=== PATIENT | female | born 1940 | race Caucasian/White ===

== ENCOUNTER → 2016-09-16 | Outpatient (CLI) | payer OTHER, BC ==
[~2016-09-16] MED LIST: ATV1HP PO; CLB/200 PO; CRG3125 PO; DICL1GEL28 TD; ESCI1TAB9 PO; KETO0.5S33 OPB; LPT40 PO; LSN5 PO; METF500T PO; MULT-513 PO; NRN100 PO; PRLSR20 PO; RXC5 PO; SLWMEC PO; TRIA37.5 PO
== END | disposition home or self-care (01) ==
LOC: C.LABSPEC 11:45
PROVIDERS: ATTEND Family Medicine
DX: R50.9 Fever, unspecified (principal)

== ENCOUNTER → 2016-10-15 | Outpatient (CLI) | payer OTHER, BC ==
[2016-10-15 12:37] LABS: ALT/SGPT 22 U/L (12-78); AST/SGOT 12 U/L (15-37); BLOOD UREA NITROGEN 23 mg/dl (7-18); BUN/CREATININE RATIO 21.2 (10-20); CARBON DIOXIDE 33 mmol/L (21-32); CHLORIDE 101 mmol/L (98-107); GLUCOSE 99 mg/dl (70-99); POTASSIUM 4.7 mmol/L (3.5-5.1); SODIUM 136 mmol/L (136-145)
[2016-10-15 12:48] LABS: ALKALINE PHOSPHATASE 52 U/L (45-117); CHOLESTEROL 221 mg/dl (0-200); CHOLESTEROL/HDL RATIO 5.7; HDL CHOLESTEROL 39 mg/dl; LDL CHOLESTEROL CALCULATED 150 mg/dl; TRIGLYCERIDES 159 mg/dl (0-150); VERY LOW DENSITY LIPOPROT CALC 32 mg/dl
[2016-10-15 12:54] LABS: ESTIMATED AVERAGE GLUCOSE 123 mg/dl; HA1C FLAG Normal (Normal)
--- NOTE | 2016-10-19 12:36 | CODING QUERY MEDICAL NECESSITY ---
SUPPORTING DIAGNOSIS NEEDED Dr. Alatorre, A supporting diagnosis is required for the test/procedure performed on this patient in order for us to be reimbursed by the patient's insurance. Please provide a supporting diagnosis for the following test/procedure listed below next to the test name along with your signature. *If there is no additional diagnosis for this patient that would support the following test/procedure please document that below next to the test/procedure. Test(s)/Procedure(s) that require a supporting diagnosis: * ([id number]) VITAMIN D ASSAY DIAGNOSIS: DATE OF SERVICE: 10/15/16 Provider Signature: Date: Thank you Kel Castano [facility] Information Management Once completed, please kindly fax back to [phone] For questions please call [phone]
== END | disposition home or self-care (01) ==
LOC: C.LABPVFM 09:28
PROVIDERS: ATTEND Family Medicine
DX: I10 Essential (primary) hypertension (principal); E11.9 Type 2 diabetes mellitus without complications; E78.5 Hyperlipidemia, unspecified; G47.9 Sleep disorder, unspecified; F41.9 Anxiety disorder, unspecified; Z13.21 Encounter for screening for nutritional disorder; E55.9 Vitamin D deficiency, unspecified

== ENCOUNTER → 2017-02-24 | Outpatient (CLI) | payer OTHER, BC ==
--- NOTE | 2017-02-24 10:45 | DIAGNOSTIC IMAGING REPORT ---
CHEST 2 VIEWS ROUTINE CLINICAL HISTORY: 76 years-old Female presenting with PRUITUS. TECHNIQUE: PA and lateral views of the chest were obtained. COMPARISON: 02/19/2014. FINDINGS: Atherosclerosis of the aortic arch. Cardiac silhouette normal. Lungs and pleural spaces clear. Right shoulder arthroplasty. Acute kyphotic deformity in the lower thoracic spine, although compression deformities are not well demonstrated. This has significantly increased since 2013. Upper abdomen demonstrates posterior lumbar fusion hardware. IMPRESSION: 1. No acute cardiopulmonary disease. 2. Significant increase in kyphotic deformity since 2013 secondary to presumed compression deformities in the lower thoracic spine, which are poorly visualized. Electronically signed by: Derrick Lindo M.D. 02/24/2017 10:44 AM Dictated Date/Time: 02/24/2017 10:42 AM
[2017-02-24 12:12] LABS: BASO % 0.5 %; BASO ABS # 0.03 K/uL (0-0.2); COMPLETE YES; EOS % 3.6 %; HEMATOCRIT 38.6 % (37-47); IG% 0.5 %; LYMPH % 24.9 %; LYMPH ABS # 1.66 K/uL (1.2-3.4); MEAN CELL VOLUME 86.4 fL (80-100); MEAN CORPUSCULAR HEMOGLOBIN 27.7 pg (25-34); MEAN CORPUSCULAR HGB CONC 32.1 g/dl (32-36); MEAN PLATELET VOLUME 9.4 fL (7.4-10.4); MONO % 9.8 %; NEUT % 60.7 %; PLATELET COUNT 269 K/uL (130-400); RED BLOOD COUNT 4.47 M/uL (4.2-5.4); WHITE BLOOD COUNT 6.66 K/uL (4.8-10.8)
== END | disposition home or self-care (01) ==
LOC: C.LABPVFM 10:20
PROVIDERS: ATTEND Dermatology
DX: L29.9 Pruritus, unspecified (principal)

== ENCOUNTER → 2017-04-14 | Outpatient (CLI) | payer OTHER, BC ==
[2017-04-14 12:39] LABS: ALT/SGPT 20 U/L (12-78); BLOOD UREA NITROGEN 19 mg/dl (7-18); BUN/CREATININE RATIO 16.8 (10-20); CALCIUM 9.5 mg/dl (8.5-10.1); CARBON DIOXIDE 30 mmol/L (21-32); CHLORIDE 97 mmol/L (98-107); CHOLESTEROL 189 mg/dl (0-200); GLUCOSE 99 mg/dl (70-99); POTASSIUM 4.5 mmol/L (3.5-5.1); SODIUM 131 mmol/L (136-145); TRIGLYCERIDES 161 mg/dl (0-150); VERY LOW DENSITY LIPOPROT CALC 32 mg/dl
[2017-04-14 12:42] LABS: ALKALINE PHOSPHATASE 57 U/L (45-117); AST/SGOT 17 U/L (15-37); CHOLESTEROL/HDL RATIO 5.4; HDL CHOLESTEROL 35 mg/dl; LDL CHOLESTEROL CALCULATED 122 mg/dl
== END | disposition home or self-care (01) ==
LOC: C.LABPVFM 09:04
PROVIDERS: ATTEND Family Medicine
DX: F41.9 Anxiety disorder, unspecified (principal); E78.5 Hyperlipidemia, unspecified; R73.01 Impaired fasting glucose; I10 Essential (primary) hypertension; G62.9 Polyneuropathy, unspecified

== ENCOUNTER → 2017-10-10 | Outpatient (CLI) | payer OTHER, BC ==
[2017-10-10 12:50] LABS: HEMOGLOBIN A1C 6.3 % (4.5-5.6)
[2017-10-10 13:03] LABS: ALBUMIN 3.7 gm/dl (3.4-5.0); ALT/SGPT 24 U/L (12-78); AST/SGOT 16 U/L (15-37); BLOOD UREA NITROGEN 19 mg/dl (7-18); CALCIUM 9.1 mg/dl (8.5-10.1); CARBON DIOXIDE 30 mmol/L (21-32); CHOLESTEROL 197 mg/dl (0-200); GLUCOSE 102 mg/dl (70-99); POTASSIUM 4.5 mmol/L (3.5-5.1); SODIUM 134 mmol/L (136-145)
[2017-10-10 13:06] LABS: ALKALINE PHOSPHATASE 59 U/L (45-117); LDL CHOLESTEROL CALCULATED 130 mg/dl; TOTAL PROTEIN 7.8 gm/dl (6.4-8.2)
== END | disposition home or self-care (01) ==
LOC: C.LABPVFM 09:48
PROVIDERS: ATTEND Family Medicine
DX: K21.0 Gastro-esophageal reflux disease with esophagitis (principal); I10 Essential (primary) hypertension; E78.5 Hyperlipidemia, unspecified; M19.90 Unspecified osteoarthritis, unspecified site; F41.9 Anxiety disorder, unspecified; R73.01 Impaired fasting glucose; G47.00 Insomnia, unspecified

== ENCOUNTER 2023-05-07 13:36 | Inpatient (IN) ==
--- NOTE | 2023-05-07 14:12 | Emergency Department Note ---
Impression & Plan Fall, Acute hip pain, Acute ankle pain ED Provider Note NAME: KENYA SALMERON AGE: 82 SEX: F : 1940 ARRIVES VIA: Walk-In INFORMANT: Patient ED PROVIDER(S): Terrence Rodriguez DO CHIEF COMPLAINT: fall HPI: Patient is an 82-year-old female with a past medical history of cognitive decline/dementia, diabetes and hypertension who presents the ER following a fall. They note that she was found in front of the house down the ground. She notes that she went outside to see the salvador. Her family is present at bedside and given the history that she was unable to get up and consequently they brought her in. She is complaining of right hip pain. No headache or neck pain. No chest pain. No other exacerbating or remitting factors. History is obtained from family present at bedside as the patient has dementia and is unable to offer any history. ADDITIONAL HISTORY OBTAINED: Per HPI Chronic Medical/Social Conditions Affecting Care: Per HPI PAST MEDICAL HISTORY:See Below PAST SURGICAL HISTORY:See Below FAMILY HISTORY:See Below SOCIAL HISTORY:See Below HOME MEDICATIONS:See Below ALLERGIES:See Below VITALS:See Below PHYSICAL EXAMINATION: GENERAL: alert, well appearing, well nourished, no distress, non-toxic HEAD: normal cephalic, atraumatic EYE EXAM: normal conjunctiva, PERRL and EOM's grossly intact OROPHARYNX: no exudate, no erythema, lips, buccal mucosa, and tongue normal and mucous membranes are moist NECK: supple, no nuchal rigidity, no adenopathy, non-tender CHEST: stable to compression anteriorly and posteriorly LUNGS: clear to auscultation. Normal chest wall mechanics HEART: no murmurs, S1 normal and S2 normal ABDOMEN: abdomen soft, non-tender, normo-active bowel sounds, no masses, no rebound or guarding. PELVIS: stable to compression anteriorly and posteriorly BACK: Back is symmetrical on inspection and there is no deformity, no midline tenderness, no CVA tenderness. UPPER EXTREMITIES: full active and passive range of motion of all joints without tenderness to palpation LOWER EXTREMITIES: Flexion-extension of bilateral hip knee ankle is intact. Minimal tenderness in the right ankle. Right leg is 2 inches shorter than left NEURO EXAM: Awake alert but confused at baseline cranial nerves II-XII grossly intact, normal speech, no gross weakness of arms, no gross weakness of legs. GCS: 14. MEDICAL DECISION MAKING: Patient is an 82-year-old female who presents ER for above-stated complaint. IV was established blood work was obtained. Labs show mild leukocytosis of 12,000. No significant anemia. BMP along with LFTs bilirubin and lipase is unremarkable. UA was contaminated and not clearly infected but she was given IV Cipro. She was given Cipro as she had allergies to penicillins and cephalosporins. She is updated bedside. Discussed with family who had some concerns in regards to her safety at home and consequently she was admitted to the hospital for further work-up management and treatment. External Records Reviewed: Patient follows up with PCP for for depression Consults/Care Managements Discussions: Per [facility] Triage Nursing notes reviewed. Limited review of prior medical records performed Vital Signs: reviewed and remarkable for no significant abnormalities Differential diagnosis: Differential diagnoses include major intracranial, cervical, spinal, thoracic, abdominal, pelvic and neurologic injury. Fracture, contusion, sprain, strain, laceration, abrasions included as well. ER treatment provided: See below Diagnostics interpreted by me include EKG and cardiac monitoring as listed below: -Cardiac Monitoring: An order was placed for continuous cardiac monitoring. The monitor shows a rate of 70 with sinus rhythm. -ECG: Sinus rhythm rate 69 Normal axis No PVCs QTc 420 -Laboratory studies:Interpreted by me as stated above in MDM and shown below. Imaging studies: Xrays: As interpreted by me: X-ray of the hip and pelvis showed no obvious fracture per my read by degenerative findings within the right hip question AVM of the CTs show: CT head was negative Procedures:none Critical Care: None Past Med/Surg History Medical History Memory loss Osteopenia Surgical History History of hysterectomy History of tonsillectomy History of vaginal surgery History of ventral hernia repair Family History Mother Malignant neoplasm of brain Pancreatic cancer Father Malignant neoplasm of brain Alzheimer disease Pancreatic cancer Myocardial infarction Sister Malignant neoplasm of brain Denies family history of Ovarian cancer Prostate cancer Breast cancer Colorectal cancer Social History Smoking Status: Former smoker Hx Alcohol Use: No Hx Substance Use: No Preferred Language: Dutch marital status: Current Living Situation: Spouse current occupational status: retired Feels Safe at Home: Yes caffeine: Yes Dental Care, Regularly: No Physical Activity Frequency: Does not Exercise Seatbelt Use: always Sunscreen Use: Yes Allergies Allergies Allergy/AdvReac Type Severity Reaction Status Date / Time Cephalosporins Allergy Mild Verified 02/11/23 10:14 Penicillins Allergy Mild ITCHING;JOSE Verified 02/11/23 10:14 MA tramadol Allergy Unknown Verified 02/11/23 10:14 prednisone Allergy Verified 02/11/23 10:14 morphine AdvReac Severe nausea and Verified 02/11/23 10:14 vomiting Home Meds Home Medications Medication Instructions Recorded Confirmed coenzyme Q10 100 mg capsule 100 mg PO DAILY 05/02/20 05/07/23 acetaminophen 325 mg tablet 325 mg PO AMHS 08/22/20 05/07/23 aspirin 81 mg tablet,delayed 81 mg PO DAILY 12/26/20 05/07/23 release Previous Rx's Medication Instructions Recorded escitalopram oxalate 10 mg tablet 10 mg PO DAILY #90 tabs 10/05/22 (Lexapro) lisinopril 10 mg tablet 10 mg PO DAILY #90 tabs 10/05/22 carvedilol 3.125 mg tablet 6.25 mg PO BID #360 tabs 11/03/22 celecoxib 200 mg capsule 200 mg PO DAILY #90 caps 12/07/22 ezetimibe 10 mg tablet (Zetia) 10 mg PO DAILY #90 tabs 12/07/22 atorvastatin 80 mg tablet 80 mg PO DAILY #90 tabs 12/22/22 gabapentin 300 mg capsule 300 mg PO DAILY #90 caps 12/22/22 omeprazole 20 mg capsule,delayed 20 mg PO DAILY #90 caps 12/22/22 release sodium chloride 1 gram tablet 1,000 mg PO BID #180 tabs 03/07/23 furosemide 20 mg tablet (Lasix) 10 mg PO BID #45 tabs 05/05/23 Results & Data (ED) Vital Signs Vital Signs - 24 hr 05/07/23 13:37 05/07/23 14:32 05/07/23 14:32 Temperature 37.0 C Temperature Source Oral Pulse Rate 69 Pulse Rate [Apical] 73 Respiratory Rate 16 18 Respiratory Effort / Characteristics Non-Labored Respiratory Depth Normal Blood Pressure 143/62 H Blood Pressure [Right Arm] 210/125 H Blood Pressure Mean 89 Blood Pressure Mean [Right Arm] 153 Pulse Oximetry 95 96 96 Oxygen Delivery Method Room Air Room Air Sepsis Recent Fever Within 48 Hours No Sepsis New/Unexplained Change in Mental Status N/A Sepsis Action Taken by Nursing No Action Required 05/07/23 15:00 05/07/23 15:43 Temperature Temperature Source Pulse Rate 69 Pulse Rate [Apical] 75 Respiratory Rate 16 Respiratory Effort / Characteristics Respiratory Depth Blood Pressure Blood Pressure [Right Arm] 184/69 H Blood Pressure Mean Blood Pressure Mean [Right Arm] 107 Pulse Oximetry 97 Oxygen Delivery Method Sepsis Recent Fever Within 48 Hours Sepsis New/Unexplained Change in Mental Status Sepsis Action Taken by Nursing Laboratory Data 05/07/23 14:15 05/07/23 14:15 Lab Results 05/07/23 05/07/23 05/07/23 Range/Units 14:15 14:15 14:28 WBC 12.19 H (4.8-10.8) K/ul RBC 4.47 (4.20-5.40) M/uL Hgb 12.6 (12.0-16.0) g/dl Hct 38.4 (37.0-47.0) % MCV 85.9 (80.0-100.0) fL MCH 28.2 (25.0-34.0) pg MCHC 32.8 (32.0-36.0) g/dL RDW Std Deviation 42.2 (36.4-46.3) fL RDW Coeff of Jan 13.5 (11.5-14.5) % Plt Count 258 (130-400) K/uL MPV 9.1 L (9.4-12.4) fL Immature Gran % (Auto) 0.6 % Neut % (Auto) 81.1 % Lymph % (Auto) 9.8 % [place] % (Auto) 6.8 % Eos % (Auto) 1.1 % Baso % (Auto) 0.6 % Neut # (Auto) 9.89 H (1.40-6.50) K/uL Lymph # (Auto) 1.19 L (1.20-3.40) K/uL [place] # (Auto) 0.83 H (0.11-0.59) K/uL Eos # (Auto) 0.14 (0.00-0.50) K/uL Baso # (Auto) 0.07 (0.00-0.20) K/uL Immature Gran # (Auto) 0.07 (0.01-0.20) K/uL Sodium 132 L (136-145) mmol/L Potassium 3.9 (3.5-5.1) mmol/L Chloride 101 (98-107) mmol/L Carbon Dioxide 27 (21-32) mmol/L Anion Gap 4 (3-11) BUN 15 (6-23) mg/dl Creatinine 0.92 (0.6-1.2) mg/dl Est Cr Clr Drug Dosing Not Reportable Est GFR ( Amer) 66.7 ml/min Est GFR (Non-Af Amer) 57.6 ml/min BUN/Creatinine Ratio 16.3 (10-20) Glucose 115 H (70-99(Fasting)) mg/dl Calcium 9.1 (8.6-10.3) mg/dl Total Bilirubin 0.8 (0.2-1.0) mg/dl AST 14 (13-39) U/L ALT 11 (7-52) U/L Alkaline Phosphatase 56 (34-104) U/L Total Creatine Kinase 37 (26-192) U/L Troponin I High Sens 11.3 (0-14) pg/ml Total Protein 6.8 (6.0-8.3) gm/dl Albumin 3.9 (3.4-5.0) gm/dl Globulin 2.9 (2.5-4.0) gm/dl Albumin/Globulin Ratio 1.3 (0.9-2) Lipase 37 (11-82) U/L Urine Color Yellow Urine Appearance Cloudy A (Clear) Urine pH 6.0 (4.5-7.5) Ur Specific [place] 1.018 (1.000-1.030) Urine Protein 1+ H (Negative) Urine Glucose (UA) Negative (Negative) Urine Ketones Negative (Negative) Urine Blood Negative (Negative) Urine Nitrite Negative (Negative) Urine Bilirubin Negative (Negative) Urine Urobilinogen Negative (Negative) Ur Leukocyte Esterase Trace H (Negative) Urine WBC (Auto) 5-10 H (0-5) /hpf Urine RBC (Auto) 0-4 (0-4) /hpf U Hyaline Cast (Auto) 1-5 (0-5) /lpf U Epithel Cells (Auto) 20-30 H (0-5) /lpf Urine Bacteria (Auto) 2+ H (Negative) Administered Medications Ciprofloxacin (Cipro / D5w) 400 mg in 200 mls @ 100 mls/hr IV NOW STA; Protocol Stop: 05/07/23 18:13 Last Admin: 05/07/23 17:09 Dose: 100 mls/hr Documented By: KT Discontinued Medications Acetaminophen (Acetaminophen 325 Mg Tab) 650 mg PO NOW STA Stop: 05/07/23 16:11 Last Admin: 05/07/23 17:09 Dose: 650 mg Documented By: KT Imaging Data Radiologist's Impression: Ankle X-Ray 05/07/23 14:05 RIGHT ANKLE 3 VIEWS CLINICAL HISTORY: Fall with right ankle injury. FINDINGS: 3 views of the right ankle are obtained. No prior studies are available for comparison at the time of dictation. The skeletal structures are heterogeneously osteopenic. No acute fracture is clearly identified. An indeterminate band of sclerosis is seen in the distal tibia and may be related to prior trauma. There is chronic appearing deformity at the base of the calcaneus. Dorsal and plantar heel spurs are observed. The ankle mortise is intact. Bony overgrowth is seen around the ankle. A high arch is observed. Soft tissue edema is present throughout the visualized right lower extremity. There is advanced atherosclerotic calcification of the regional arteries. IMPRESSION: 1. Soft tissue swelling with no acute fracture clearly identified. Inter pretation is difficult due to the degree of osteopenia and degenerative change. If there is clinical concern for occult fracture consider short-term radiographic follow-up. 2. A band of sclerosis in the distal tibia is indeterminant and may represent the sequela of previous trauma. 3. High arch and large heel spurs. Electronically signed by: Andrea Rush M.D. 05/07/2023 3:[address] 05/07/23 14:05 CT SCAN OF THE BRAIN WITHOUT IV CONTRAST CLINICAL HISTORY: Fall. COMPARISON STUDY: CT of the brain dated 11/13/2020 TECHNIQUE: Unenhanced axial CT scan of the brain is performed from the vertex to the skull base. A dose lowering technique was utilized adhering to the principles of ALARA. CT DOSE: 625.8 mGy.cm FINDINGS: Brain parenchyma: There is age-related involutional change noting [id number] subcortical and periventricular microangiopathic disease. There is no hemorrhage, mass effect, or evidence of acute territorial ischemia by CT criteria. Soto-white matter differentiation is preserved. No extra-axial fluid collection is seen. Ventricles, sulci, cisterns: Prominent secondary to involutional change. Intracranial vasculature: There is atherosclerotic calcification of the cavernous carotid and vertebral artery. Calvarium: The skeletal structures are osteopenic. No depressed calvarial fracture is identified. Sinuses and mastoids: The visualized paranasal sinuses are clear. The mastoid air cells are well pneumatized. Orbits: The bony orbits are grossly intact. There are bilateral ocular lens implants. IMPRESSION: There is no hemorrhage, mass effect, or evidence of acute te rritorial ischemia by CT criteria. ACT 112: Negative or not required by law. Electronically signed by: Andrea Rush M.D. 05/07/2023 2:49 PM Hip/Pelvis X-Ray 05/07/23 14:05 SINGLE VIEW PELVIS; 2 VIEWS RIGHT HIP CLINICAL HISTORY: Fall. Right hip pain. FINDINGS: An AP view of the pelvis with AP and frog leg views of the right hip are obtained. Correlation is made with radiographs of the lumbar spine dated 04/25/2020. The skeletal structures are osteopenic. No acute fracture is seen involving the hips or bony pelvis. 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 There is advanced degenerative change of the right hip with marked deformity and flattening of the right femoral head. This represents a significant change from 04/25/2020. The right femur is superiorly subluxed. Moderate to advanced arthritic change is noted in the left hip. Degenerative sclerosis is seen in the sacroiliac joints and pubic symphysis. Advanced spondylosis and postsurgical change is partially visualized in the lumbar spine. There is advanced atherosclerotic calcification of the femoral arteries. Numerous calcified granulomas project over the gluteal tissues. IMPRESSION: 1. No acute fracture is identified. 2. There is advanced degenerative change/deformity of the right hip as above with flattening of the right femoral head. This has significantly progressed as compared 2019. Outpatient orthopedic follow-up is recommended. 3. Additional findings as above. Electronically signed by: Andrea Rush M.D. 05/07/2023 3:26 PM Discharge Plan Visit Data Chief Complaint: Fall Stated Complaint: FALL RIGHT LEG AND HIP PAIN ED Provider: Terrence Rodriguez Discharge Problem: Fall, Acute hip pain, Acute ankle pain Patient Disposition: Admitted As Inpatient Discharge Instructions Interventions: ED Discharge Assessment Last Done: 05/07/23 17:40 Forms Stand Alone Forms: My [facility] Prescriptions Prescriptions: No Action coenzyme Q10 100 mg capsule 100 mg PO DAILY escitalopram oxalate [Lexapro] 10 mg tablet 10 mg PO DAILY Qty: 90 3RF lisinopril 10 mg tablet 10 mg PO DAILY Qty: 90 3RF carvedilol 3.125 mg tablet 6.25 mg PO BID Qty: 360 3RF Rx Instructions: must administer with a meal/food ezetimibe [Zetia] 10 mg tablet 10 mg PO DAILY Qty: 90 3RF celecoxib 200 mg capsule 200 mg PO DAILY Qty: 90 3RF omeprazole 20 mg capsule,delayed release(DR/EC) 20 mg PO DAILY Qty: 90 3RF atorvastatin 80 mg tablet 80 mg PO DAILY Qty: 90 3RF gabapentin 300 mg capsule 300 mg PO DAILY Qty: 90 1RF sodium chloride 1 gram tablet 1,000 mg PO BID Qty: 180 2RF furosemide [Lasix] 20 mg tablet 10 mg PO BID Qty: 45 3RF acetaminophen 325 mg tablet 325 mg PO AMHS aspirin 81 mg tablet,delayed release (DR/EC) 81 mg PO DAILY Referrals Referrals: Lorene Murray MD [Primary Care Provider] -
[2023-05-07 14:36] LABS: Basophils # (auto) 0.07 K/uL (0.00-0.20); Basophils % (auto) 0.6 %; Eosinophils # (auto) 0.14 K/uL (0.00-0.50); Eosinophils % (auto) 1.1 %; Hematocrit (blood only) 38.4 % (37.0-47.0); Hemoglobin 12.6 g/dl (12.0-16.0); Immature Granulocytes # (auto) 0.07 K/uL (0.01-0.20); Immature Granulocytes % (auto) 0.6 %; Lymphocytes # (auto) 1.19 K/uL (1.20-3.40); Lymphocytes % (auto) 9.8 %; Mean Corpuscular Hemoglobin 28.2 pg (25.0-34.0); Mean Corpuscular Hgb Conc 32.8 g/dL (32.0-36.0); Mean Corpuscular Volume 85.9 fL (80.0-100.0); Mean Platelet Volume 9.1 fL (9.4-12.4); Monocytes # (auto) 0.83 K/uL (0.11-0.59); Monocytes % (auto) 6.8 %; Neutrophils # (auto) 9.89 K/uL (1.40-6.50); Neutrophils % (auto) 81.1 %; Platelet Count 258 K/uL (130-400); RDW Coefficient of Variation 13.5 % (11.5-14.5); RDW Standard Deviation 42.2 fL (36.4-46.3); Red Blood Count 4.47 M/uL (4.20-5.40); White Blood Count 12.19 K/ul (4.8-10.8)
[2023-05-07 14:47] LABS: Appearance Urine Cloudy (Clear); Bacteria Urine Automated 2+ (Negative); Bilirubin Urine Negative (Negative); Blood Urine Negative (Negative); Color Urine Yellow; Epithelial Cell Urine Auto 20-30 /lpf (0-5); Glucose Urine UA Negative (Negative); Ketones Urine Negative (Negative); Leukocyte Esterase Urine Trace (Negative); Nitrite Urine Negative (Negative); Protein Urine 1+ (Negative); RBC Urine Automated 0-4 /hpf (0-4); Specific Gravity Urine 1.018 (1.000-1.030); Urobilinogen Urine Negative (Negative)
--- NOTE | 2023-05-07 14:50 | CT Scan Report ---
CT SCAN OF THE BRAIN WITHOUT IV CONTRAST CLINICAL HISTORY: Fall. COMPARISON STUDY: CT of the brain dated 11/13/2020 TECHNIQUE: Unenhanced axial CT scan of the brain is performed from the vertex to the skull base. A do se lowering technique was utilized adhering to the principles of ALARA. CT DOSE: 625.8 mGy.cm FINDINGS: Brain parenchyma: There is age-related involutional change noting [id number] subcortical and pe riventricular microangiopathic disease. There is no hemorrhage, mass effect, or evidence of acute ter ritorial ischemia by CT criteria. Soto-white matter differentiation is preserved. No extra-axial flui d collection is seen. Ventricles, sulci, cisterns: Prominent secondary to involutional change. Intracranial vasculature: There is atherosclerotic calcification of the cavernous carotid and vertebr al artery. Calvarium: The skeletal structures are osteopenic. No depressed calvarial fracture is identified. Sinuses and mastoids: The visualized paranasal sinuses are clear. The mastoid air cells are well pneu matized. Orbits: The bony orbits are grossly intact. There are bilateral ocular lens implants. IMPRESSION: There is no hemorrhage, mass effect, or evidence of acute territorial ischemia by CT gerard alcantar. ACT 112: Negative or not required by law. Electronically signed by: Andrea Rush M.D. 05/07/2023 2:49 PM
[2023-05-07 14:57] LABS: Alanine Aminotransferase 11 U/L (7-52); Albumin Globulin Ratio 1.3 (0.9-2); Albumin Level 3.9 gm/dl (3.4-5.0); Alkaline Phosphatase 56 U/L (34-104); Anion Gap 4 (3-11); Aspartate Aminotransferase 14 U/L (13-39); BUN Creatinine Ratio 16.3 (10-20); Bilirubin,Total 0.8 mg/dl (0.2-1.0); Blood Urea Nitrogen 15 mg/dl (6-23); Calcium 9.1 mg/dl (8.6-10.3); Carbon Dioxide 27 mmol/L (21-32); Chloride 101 mmol/L (98-107); Creatine Kinase 37 U/L (26-192); Est GFR (African American) 66.7 ml/min; Est GFR (Non-African American) 57.6 ml/min; Globulin 2.9 gm/dl (2.5-4.0); Glucose 115 mg/dl (70-99(Fasting)); Lipase 37 U/L (11-82); Potassium 3.9 mmol/L (3.5-5.1); Sodium 132 mmol/L (136-145); Total Protein 6.8 gm/dl (6.0-8.3)
[2023-05-07 15:04] LABS: Troponin I High Sensitivity 11.3 pg/ml (0-14)
--- NOTE | 2023-05-07 15:14 | XRay Report ---
RIGHT ANKLE 3 VIEWS CLINICAL HISTORY: Fall with right ankle injury. FINDINGS: 3 views of the right ankle are obtained. No prior studies are available for comparison at t he time of dictation. The skeletal structures are heterogeneously osteopenic. No acute fracture is cl early identified. An indeterminate band of sclerosis is seen in the distal tibia and may be related t o prior trauma. There is chronic appearing deformity at the base of the calcaneus. Dorsal and plantar heel spurs are observed. The ankle mortise is intact. Bony overgrowth is seen around the ankle. A hi gh arch is observed. Soft tissue edema is present throughout the visualized right lower extremity. Th ere is advanced atherosclerotic calcification of the regional arteries. IMPRESSION: 1. Soft tissue swelling with no acute fracture clearly identified. Interpretation is difficult due to the degree of osteopenia and degenerative change. If there is clinical concern for occult fracture c onsider short-term radiographic follow-up. 2. A band of sclerosis in the distal tibia is indeterminant and may represent the sequela of previous trauma. 3. High arch and large heel spurs. Electronically signed by: Andrea Rush M.D. 05/07/2023 3:12 PM
--- NOTE | 2023-05-07 15:29 | XRay Report ---
SINGLE VIEW PELVIS; 2 VIEWS RIGHT HIP CLINICAL HISTORY: Fall. Right hip pain. FINDINGS: An AP view of the pelvis with AP and frog leg views of the right hip are obtained. Correlat ion is made with radiographs of the lumbar spine dated 04/25/2020. The skeletal structures are osteope pablo. No acute fracture is seen involving the hips or bony pelvis. 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 There is advanced degenerative change of the right hip with marked deformity and flattening o f the right femoral head. This represents a significant change from 04/25/2020. The right femur is sup eriorly subluxed. Moderate to advanced arthritic change is noted in the left hip. Degenerative sclero sis is seen in the sacroiliac joints and pubic symphysis. Advanced spondylosis and postsurgical jameson e is partially visualized in the lumbar spine. There is advanced atherosclerotic calcification of the femoral arteries. Numerous calcified granulomas project over the gluteal tissues. IMPRESSION: 1. No acute fracture is identified. 2. There is advanced degenerative change/deformity of the right hip as above with flattening of the r ight femoral head. This has significantly progressed as compared 2019. Outpatient orthopedic follow-u p is recommended. 3. Additional findings as above. Electronically signed by: Andrea Rush M.D. 05/07/2023 3:26 PM
[2023-05-07] MEDS ORDERED: ACETAMINOPHEN 325 MG TAB PO STA (16:10)
[2023-05-07] MEDS ORDERED: CIPROFLOXACIN / D5W 400 MG/200 ML BAG IV STA (16:14)
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
[2023-05-07] MEDS ORDERED: GLUCAGON FOR INJ 1 MG VIAL SQ PRN (16:59)
[2023-05-07] MEDS ORDERED: DEXTROSE 50% 50 ML SYRINGE IV PRN (16:59)
[2023-05-07] MEDS ORDERED: GLUCOSE 40% GEL 15 GM TUBE PO PRN (16:59)
[2023-05-07] MEDS ORDERED: GLUCOSE 10 TAB/TUBE PO PRN (16:59)
[2023-05-07] MEDS ORDERED: CARBOHYDRATES FOR HYPOGLYCEMIA PO PRN (16:59)
[2023-05-07] MEDS ORDERED: LACTATED RINGER'S 500 ML IV ONE (17:17)
[2023-05-07] MEDS ORDERED: lisinopril 10 MG TAB PO ONE (18:23)
[2023-05-07] MEDS ORDERED: carvediloL 6.25 MG TAB PO STA (18:23)
[2023-05-07] MEDS ORDERED: ACETAMINOPHEN 325 MG TAB PO PRN (20:00)
[2023-05-07] MEDS: ACETAMINOPHEN 325 MG TAB PO SCH (20:28)
[2023-05-07] MEDS: SODIUM CHLORIDE 1 GM TABLET PO SCH (20:29)
[2023-05-07] MEDS ORDERED: carvediloL 6.25 MG TAB PO SCH (21:00)
[2023-05-07] MEDS ORDERED: INFLUENZA VACCINE HIGH-DOSE (HD-IIV4) PF 65+ 0.7mL SYR IM ONE (21:00)
[2023-05-07] MEDS: INSULIN ASPART PER UNIT CHARGE SC SCH (22:00)
[2023-05-07] MEDS ORDERED: Nursing to Pharmacy Communication SCH (23:30)
[2023-05-08] MEDS ORDERED: INFLUENZA VACCINE HIGH-DOSE (HD-IIV4) PF 65+ 0.7mL SYR IM ONE (06:00)
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
[2023-05-08 07:38] LABS: Basophils # (auto) 0.08 K/uL (0.00-0.20); Eosinophils # (auto) 0.46 K/uL (0.00-0.50); Eosinophils % (auto) 5.7 %; Hematocrit (blood only) 36.1 % (37.0-47.0); Hemoglobin 12.2 g/dl (12.0-16.0); Immature Granulocytes # (auto) 0.04 K/uL (0.01-0.20); Immature Granulocytes % (auto) 0.5 %; Lymphocytes # (auto) 1.13 K/uL (1.20-3.40); Mean Corpuscular Hemoglobin 28.2 pg (25.0-34.0); Mean Corpuscular Hgb Conc 33.8 g/dL (32.0-36.0); Mean Corpuscular Volume 83.6 fL (80.0-100.0); Mean Platelet Volume 9.3 fL (9.4-12.4); Monocytes # (auto) 0.74 K/uL (0.11-0.59); Monocytes % (auto) 9.1 %; Neutrophils # (auto) 5.65 K/uL (1.40-6.50); Neutrophils % (auto) 69.7 %; Platelet Count 254 K/uL (130-400); RDW Coefficient of Variation 13.5 % (11.5-14.5); RDW Standard Deviation 41.9 fL (36.4-46.3); Red Blood Count 4.32 M/uL (4.20-5.40)
[2023-05-08 07:57] LABS: BUN Creatinine Ratio 17.9 (10-20); Calcium 8.7 mg/dl (8.6-10.3); Creatinine Clr Calc Pharmacy 43.2 ml/min; Est GFR (African American) 81.5 ml/min; Est GFR (Non-African American) 70.3 ml/min; Potassium 3.7 mmol/L (3.5-5.1)
[2023-05-08] MEDS: ACETAMINOPHEN 325 MG TAB PO SCH ×2 (07:58→20:23)
[2023-05-08] MEDS: INSULIN ASPART PER UNIT CHARGE SC SCH ×4 (07:58→20:08)
[2023-05-08] MEDS: ATORVASTATIN 40 MG TAB PO SCH (07:59)
[2023-05-08] MEDS: PANTOprazole 40 MG TAB PO SCH (07:59)
[2023-05-08] MEDS: ASPIRIN 81 MG ECTAB PO SCH (07:59)
[2023-05-08] MEDS: EZETIMIBE 10 MG TAB PO SCH (07:59)
[2023-05-08] MEDS: SODIUM CHLORIDE 1 GM TABLET PO SCH ×2 (07:59→20:23)
[2023-05-08] MEDS: GABAPENTIN 300 MG CAP PO SCH (07:59)
[2023-05-08] MEDS: carvediloL 6.25 MG TAB PO SCH ×2 (07:59→17:56)
[2023-05-08] MEDS: ESCITALOPRAM OXALATE 10 MG TAB PO SCH (07:59)
[2023-05-08] MEDS: lisinopril 10 MG TAB PO SCH (07:59)
--- NOTE | 2023-05-08 11:13 | Electrocardiogram Report ---
Test Reason : Blood Pressure : / mmHG Vent. Rate : 069 BPM Atrial Rate : 069 BPM P-R Int : 134 ms QRS Dur : 086 ms QT Int : 392 ms P-R-T Axes : 066 -12 064 degrees QTc Int : 420 ms Normal sinus rhythm Possible Left atrial enlargement T wave abnormality, consider anterior ischemia Abnormal ECG When compared with ECG of 19-FEB-2014 10:45, No significant change was found Confirmed by Peyman Avalos ([id number]) on 05/08/2023 11:13:00 AM Referred By: Confirmed By:Peyman Avalos
[2023-05-08] MEDS ORDERED: FUROSEMIDE 40 MG TAB PO ONE (11:15)
[2023-05-08] MEDS: FUROSEMIDE 20 MG TAB PO SCH (17:56)
--- NOTE | 2023-05-08 19:32 | XRay Report ---
RIGHT ANKLE 3 VIEWS CLINICAL HISTORY: Fall with right ankle injury. FINDINGS: 3 views of the right ankle are compared to study dated 05/07/2023. The skeletal structures a re heterogeneously osteopenic. No acute fracture is clearly identified. An indeterminate band of scle rosis is seen in the distal tibia and may be related to prior trauma. There is chronic appearing defo rmity at the base of the calcaneus. Dorsal and plantar heel spurs are observed. The ankle mortise is intact. Bony overgrowth is seen around the ankle. A high arch is observed. Soft tissue edema is prese nt throughout the visualized right lower extremity. There is advanced atherosclerotic calcification o f the regional arteries. IMPRESSION: 1. Soft tissue swelling with no acute fracture clearly identified. No significant change from yesterd ay. Note that interpretation is difficult due to the degree of osteopenia and degenerative change. If there is clinical concern for occult fracture consider short-term (1-2 weeks)radiographic follow-up. Alternatively, a CT scan could be obtained for further evaluation. 2. A band of sclerosis in the distal tibia is indeterminant and may represent healing fracture or the sequela of previous trauma. 3. High arch and large heel spurs. Electronically signed by: Andrea Rush M.D. 05/08/2023 7:30 PM
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
--- NOTE | 2023-05-09 08:00 | Cardiology Consultation ---
Date of Consultation May 09, 2023 History of Present Illness Reason for Consultation: Fall Requesting Physician: Kanika donisist Attending Physician: Terrence Bush DO History of Present Illness 82-year-old female who initially presented to [facility] emergency department after an unwitnessed fall at home. Thought to be mechanical in nature. Initially patient was hypertensive on presentation and Lasix was held due to concerns for hypovolemia. Admission sodium level was mildly low at 132. Renal function stable. Repeat s odium level pending this a.m. Urine culture was abnormal and patient was treated with antibiotics. EKG without acute ST segment changes. 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 Dejesus Past medical history: 1. 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 Past ventricular ectopy. 3. Hypertension. 4. Hyperlipidemia/dyslipidemia 5. Traumatic subdural hemorrhage versus chronic calcification April 27, 2020 after fall with mild decreased cognition noted chronically 6. Chronic hyponatremia Allergies Allergy/AdvReac Type Severity Reaction Status Date / Time Cephalosporins Allergy Mild Verified 02/11/23 10:14 Penicillins Allergy Mild ITCHING;JOSE Verified 02/11/23 10:14 MA tramadol Allergy Unknown Verified 02/11/23 10:14 prednisone Allergy Verified 02/11/23 10:14 morphine AdvReac Severe nausea and Verified 02/11/23 10:14 vomiting Home Medications Medication Instructions Recorded Confirmed Type coenzyme Q10 100 mg capsule 100 mg PO DAILY 05/02/20 05/07/23 History acetaminophen 325 mg tablet 325 mg PO AMHS 08/22/20 05/07/23 History aspirin 81 mg tablet,delayed 81 mg PO DAILY 12/26/20 05/07/23 History release escitalopram oxalate 10 mg tablet 10 mg PO DAILY #90 tabs 10/05/22 05/07/23 Rx (Lexapro) lisinopril 10 mg tablet 10 mg PO DAILY #90 tabs 10/05/22 05/07/23 Rx carvedilol 3.125 mg tablet 6.25 mg PO BID #360 tabs 11/03/22 05/07/23 Rx celecoxib 200 mg capsule 200 mg PO DAILY #90 caps 12/07/22 05/07/23 Rx ezetimibe 10 mg tablet (Zetia) 10 mg PO DAILY #90 tabs 12/07/22 05/07/23 Rx atorvastatin 80 mg tablet 80 mg PO DAILY #90 tabs 12/22/22 05/07/23 Rx gabapentin 300 mg capsule 300 mg PO DAILY #90 caps 12/22/22 05/07/23 Rx omeprazole 20 mg capsule,delayed 20 mg PO DAILY #90 caps 12/22/22 05/07/23 Rx release sodium chloride 1 gram tablet 1,000 mg PO BID #180 tabs 03/07/23 Rx furosemide 20 mg tablet (Lasix) 10 mg PO BID #45 tabs 05/05/23 05/07/23 Rx Patient History Medical History Memory loss Osteopenia Surgical History History of hysterectomy History of tonsillectomy History of vaginal surgery History of ventral hernia repair Family History Mother Malignant neoplasm of brain Pancreatic cancer Father Malignant neoplasm of brain Alzheimer disease Pancreatic cancer Myocardial infarction Sister Malignant neoplasm of brain Denies family history of Ovarian cancer Prostate cancer Breast cancer Colorectal cancer Social History Smoking Status: Never smoker Second Hand Exposure: No; Do You Dip or Chew Tobacco: No; Tobacco Cessation Education Requested by Patient: No Hx Alcohol Use: No Hx Substance Use: No 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 Required: No Beliefs That Will Affect Care: Bahai Bahai Beliefs: Hindu marital status: Current Living Situation: Spouse current occupational status: retired Other Information That Helps Us Care for You: No Feels Safe at Home: Yes Safety Concerns: Feels Safe At This Time caffeine: Yes Dental Care, Regularly: No Physical Activity Frequency: Does not Exercise Seatbelt Use: always Sunscreen Use: Yes Assistive Devices: Lift Chair, Walker and Other Results & Data Vital Signs (Past 12 Hours) Vital Signs Temp Pulse Resp BP BP Pulse Ox O2 Del Method 05/09/23 07:05 36.7 C 65 16 188/68 H 205/61 H 96 Room Air 05/08/23 20:10 Room Air Diagnostic Findings Outpatient echo 05/11/2021 The examination is adequate to evaluate the referral indication. The LV wall thickness is mildly increased (concentric). The left ventricular wall motion is normal. The qualitative LV ejection fraction is 60-64% (normal). The left atrium is moderately enlarged. The left ventricular diastolic function is mildly abnormal (grade I). The aortic valve is mildly calcified. Aortic stenosis is absent. Mild aortic valve regurgitation is present. Mild mitral regurgitation is present. Mild tricuspid regurgitation is present. The estimated pulmonary artery systolic pressure is 46 mm Hg (mildly elevated).
[2023-05-09 08:03] LABS: Basophils # (auto) 0.05 K/uL (0.00-0.20); Basophils % (auto) 0.8 %; Eosinophils # (auto) 0.48 K/uL (0.00-0.50); Eosinophils % (auto) 7.3 %; Hematocrit (blood only) 35.9 % (37.0-47.0); Hemoglobin 11.8 g/dl (12.0-16.0); Immature Granulocytes # (auto) 0.02 K/uL (0.01-0.20); Immature Granulocytes % (auto) 0.3 %; Lymphocytes # (auto) 1.25 K/uL (1.20-3.40); Lymphocytes % (auto) 19.1 %; Mean Corpuscular Hemoglobin 27.8 pg (25.0-34.0); Mean Corpuscular Hgb Conc 32.9 g/dL (32.0-36.0); Mean Corpuscular Volume 84.7 fL (80.0-100.0); Mean Platelet Volume 8.9 fL (9.4-12.4); Monocytes # (auto) 0.84 K/uL (0.11-0.59); Monocytes % (auto) 12.8 %; Neutrophils # (auto) 3.91 K/uL (1.40-6.50); Neutrophils % (auto) 59.7 %; Platelet Count 237 K/uL (130-400); RDW Coefficient of Variation 13.6 % (11.5-14.5); RDW Standard Deviation 42.3 fL (36.4-46.3); Red Blood Count 4.24 M/uL (4.20-5.40); White Blood Count 6.55 K/ul (4.8-10.8)
[2023-05-09 08:23] LABS: BUN Creatinine Ratio 16.7 (10-20); Calcium 8.6 mg/dl (8.6-10.3); Creatinine Clr Calc Pharmacy 40.1 ml/min; Est GFR (African American) 74.5 ml/min; Est GFR (Non-African American) 64.3 ml/min
[2023-05-09] MEDS: INSULIN ASPART PER UNIT CHARGE SC SCH ×4 (08:40→22:00)
[2023-05-09] MEDS: PANTOprazole 40 MG TAB PO SCH (08:42)
[2023-05-09] MEDS: FUROSEMIDE 20 MG TAB PO SCH ×2 (08:42→17:25)
[2023-05-09] MEDS: EZETIMIBE 10 MG TAB PO SCH (08:42)
[2023-05-09] MEDS: GABAPENTIN 300 MG CAP PO SCH (08:42)
[2023-05-09] MEDS: ASPIRIN 81 MG ECTAB PO SCH (08:42)
[2023-05-09] MEDS: lisinopril 10 MG TAB PO SCH (08:42)
[2023-05-09] MEDS: ESCITALOPRAM OXALATE 10 MG TAB PO SCH (08:42)
[2023-05-09] MEDS: ATORVASTATIN 40 MG TAB PO SCH (08:43)
[2023-05-09] MEDS: SODIUM CHLORIDE 1 GM TABLET PO SCH ×2 (08:43→22:00)
[2023-05-09] MEDS: carvediloL 6.25 MG TAB PO SCH ×2 (08:43→17:26)
[2023-05-09] MEDS: ACETAMINOPHEN 325 MG TAB PO SCH ×2 (08:43→22:00)
--- NOTE | 2023-05-09 12:26 | XRay Report ---
XR ankle RT min 3V routine CLINICAL HISTORY: Fall, Ankle pain COMPARISON STUDY: Right ankle 05/08/2023. FINDINGS: The bones are osteopenic. There is soft tissue swelling again noted within the right ankle. A linear band of sclerosis within the distal tibia persists. Chondrocalcinosis and degenerative dejesus ges again noted at the tibiotalar joint. Vascular calcifications are present. There are plantar and p osterior calcaneal spurs present. The distal fibula appears intact. IMPRESSION: 1. No change compared to the prior studies. 2. A linear band of sclerosis within the distal tibia persists. This favors a subacute/healing fractu re. 3. No dislocation. ACT 112: Negative or not required by law. Electronically signed by: Dane Barrera M.D. 05/09/2023 12:24 PM
--- NOTE | 2023-05-09 19:12 | Billing Data ---
Date of Service May 09, 2023 Coding Level of Care Code 50705 SUB INP/OBS CARE
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
[2023-05-10] MEDS: INSULIN ASPART PER UNIT CHARGE SC SCH ×4 (08:27→21:16)
[2023-05-10 08:50] LABS: Basophils # (auto) 0.05 K/uL (0.00-0.20); Basophils % (auto) 0.6 %; Eosinophils # (auto) 0.29 K/uL (0.00-0.50); Eosinophils % (auto) 3.4 %; Hematocrit (blood only) 35.8 % (37.0-47.0); Immature Granulocytes # (auto) 0.04 K/uL (0.01-0.20); Immature Granulocytes % (auto) 0.5 %; Lymphocytes % (auto) 16.3 %; Mean Corpuscular Hgb Conc 33.5 g/dL (32.0-36.0); Mean Corpuscular Volume 83.4 fL (80.0-100.0); Monocytes # (auto) 0.82 K/uL (0.11-0.59); Monocytes % (auto) 9.6 %; Neutrophils # (auto) 5.98 K/uL (1.40-6.50); Neutrophils % (auto) 69.6 %; Platelet Count 259 K/uL (130-400); RDW Coefficient of Variation 13.7 % (11.5-14.5); RDW Standard Deviation 41.8 fL (36.4-46.3); Red Blood Count 4.29 M/uL (4.20-5.40); White Blood Count 8.58 K/ul (4.8-10.8)
[2023-05-10 09:13] LABS: BUN Creatinine Ratio 21.8 (10-20); Calcium 8.7 mg/dl (8.6-10.3); Creatinine Clr Calc Pharmacy 43.2 ml/min; Est GFR (African American) 81.5 ml/min; Est GFR (Non-African American) 70.3 ml/min; Potassium 3.6 mmol/L (3.5-5.1)
[2023-05-10] MEDS: SODIUM CHLORIDE 1 GM TABLET PO SCH ×2 (09:23→21:16)
[2023-05-10] MEDS: ATORVASTATIN 40 MG TAB PO SCH (09:23)
[2023-05-10] MEDS: ESCITALOPRAM OXALATE 10 MG TAB PO SCH (09:23)
[2023-05-10] MEDS: lisinopril 10 MG TAB PO SCH (09:23)
[2023-05-10] MEDS: FUROSEMIDE 20 MG TAB PO SCH ×2 (09:23→18:00)
[2023-05-10] MEDS: carvediloL 6.25 MG TAB PO SCH ×2 (09:23→18:00)
[2023-05-10] MEDS: GABAPENTIN 300 MG CAP PO SCH (09:23)
[2023-05-10] MEDS: PANTOprazole 40 MG TAB PO SCH (09:23)
[2023-05-10] MEDS: ACETAMINOPHEN 325 MG TAB PO SCH ×2 (09:24→21:16)
[2023-05-10] MEDS: ENOXAPARIN INJ 40 MG/0.4 ML SYR SQ SCH (09:24)
[2023-05-10] MEDS: EZETIMIBE 10 MG TAB PO SCH (09:24)
[2023-05-10] MEDS: ASPIRIN 81 MG ECTAB PO SCH (09:24)
--- NOTE | 2023-05-10 14:26 | Orthopedic Progress Note ---
Date of Service May 10, 2023 Assessment & Plan Admission and Anticipated Discharge Date Admission Date: May 07, 2023 Subjective Patient 82-year-old female with dementia who is at a fall relates having mild to moderate ankle pain right ankle x-rays reviewed and is significant osteopenia but no evidence of obvious fractures or degenerative changes patient is scheduled for MRI scan will follow and make recommendations regarding possible low tide boot after MRI scan has been completed Results & Data Vital Signs (Past 12 Hours) Vital Signs Temp Pulse Resp BP BP Pulse Ox O2 Del Method 05/10/23 07:40 Room Air 05/10/23 07:11 37.0 C 75 18 210/66 H 210/62 H 94 Room Air
--- NOTE | 2023-05-10 19:12 | Billing Data ---
Date of Service May 10, 2023 Coding Level of Care Code 62653 SUB INP/OBS CARE
--- NOTE | 2023-05-10 23:02 | Magnetic Resonance Report ---
Exam(s): MRI RIGHT ANKLE Without Contrast EXAM: MR Right Lower Extremity Without Intravenous Contrast, Ankle CLINICAL HISTORY: Reason for exam: pain, ?occult fracture. TECHNIQUE: Multiplanar magnetic resonance images of the right ankle without intravenous contrast. COMPARISON: No relevant prior studies available. FINDINGS: Nondisplaced fracture of the calcaneus, without extension into the subtalar joint. Intact tibiotalar, subtalar, calcaneocuboid, and talonavicular joints. Mild tibiotalar joint fluid. Mild thickening of the distal Achilles tendon. Trace retrocalcaneal bursitis. Moderate thickening of the medial cord of plantar fascia. Edema about the interosseous and regional flexor/extensor muscles, likely posttraumatic given the presence of a nondisplaced calcaneal fracture. Split tear of the peroneal brevis at the level of the retromalleolar groove. Mild medial flexor tenosynovitis. Intact anterior extensor tendons. Mild edema in the distal extensor digitorum longus myotendinous unit. Scarring of the lateral ligaments and deltoid ligament. No osteochondral lesion of the talar dome. IMPRESSION: Nondisplaced fracture of the calcaneus, without extension into the subtalar joint. Edema about the interosseous and regional flexor/extensor muscles, likely posttraumatic. Mild edema in the distal extensor digitorum longus myotendinous unit. Split tear of the peroneal brevis at the level of the retromalleolar groove. Mild medial flexor tenosynovitis. Scarring of the lateral ligaments and deltoid ligament. Electronically signed by: Simon Hernandez MD 05/10/23 23:01 PM
[2023-05-11 07:22] VITALS: BP 171/61; PULSE 64; RESP 14; TEMP 97.9; O2SAT 96
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
[2023-05-11] MEDS: INSULIN ASPART PER UNIT CHARGE SC SCH (07:45)
[2023-05-11] MEDS: ASPIRIN 81 MG ECTAB PO SCH (08:19)
[2023-05-11] MEDS: PANTOprazole 40 MG TAB PO SCH (08:19)
[2023-05-11] MEDS: ESCITALOPRAM OXALATE 10 MG TAB PO SCH (08:19)
[2023-05-11] MEDS: SODIUM CHLORIDE 1 GM TABLET PO SCH (08:19)
[2023-05-11] MEDS: ATORVASTATIN 40 MG TAB PO SCH (08:19)
[2023-05-11] MEDS: FUROSEMIDE 20 MG TAB PO SCH (08:20)
[2023-05-11] MEDS: lisinopril 10 MG TAB PO SCH (08:20)
[2023-05-11] MEDS: ACETAMINOPHEN 325 MG TAB PO SCH (08:20)
[2023-05-11] MEDS: EZETIMIBE 10 MG TAB PO SCH (08:20)
[2023-05-11] MEDS: carvediloL 6.25 MG TAB PO SCH (08:20)
[2023-05-11] MEDS: GABAPENTIN 300 MG CAP PO SCH (08:21)
[2023-05-11] MEDS: ENOXAPARIN INJ 40 MG/0.4 ML SYR SQ SCH (08:21)
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
--- NOTE | 2023-05-11 19:37 | Billing Data ---
Date of Service May 11, 2023 Coding Level of Care Code 91978 IN/OBS DISCH 30 MIN/LESS
== END 2023-05-11 12:15 | DRG 92 ==
LOC: ED 13:36 → 3W 16:30 → SUATTDRO 16:30 → 3W 17:40

== ENCOUNTER 2025-07-18 17:42 | Inpatient (IN) ==
[2025-07-18 19:13] LABS: Hematocrit (blood only) 30.0 % (37.0-47.0); Hemoglobin 9.6 g/dL (12.0-16.0); Immature Granulocytes # (auto) 0.06 K/uL (0.01-0.20); Immature Granulocytes % (auto) 0.7 %; Mean Corpuscular Hemoglobin 23.4 pg (25.0-34.0); Mean Corpuscular Volume 73.2 fL (80.0-100.0); Platelet Count 372 K/uL (130-400); RDW Standard Deviation 40.3 fL (36.4-46.3); Red Blood Count 4.10 M/uL (4.20-5.40); White Blood Count 8.87 K/ul (4.8-10.8)
[2025-07-18 19:31] LABS: Alanine Aminotransferase 10.0 U/L (7-52); Albumin Globulin Ratio 1.1 (0.9-2); Albumin Level 4.0 gm/dl (3.4-5.0); Alkaline Phosphatase 72.0 U/L (34-104); Anion Gap 7.0 (3-11); Bilirubin,Total 0.9 mg/dl (0.2-1.0); Blood Urea Nitrogen 14.0 mg/dl (6-23); Calcium 9.1 mg/dl (8.6-10.3); Carbon Dioxide 26.0 mmol/L (21-32); Chloride 92.0 mmol/L (98-107); Creatinine Clr Calc Pharmacy 42.6 ml/min; Globulin 3.5 gm/dl (2.5-4.0); Glucose 113.0 mg/dl (70-99(Fasting)); Potassium 4.4 mmol/L (3.5-5.1); Sodium 125.0 mmol/L (136-145); Total Protein 7.5 gm/dl (6.0-8.3)
[2025-07-18 19:46] LABS: INR 1.1 (0.9-1.1); Partial Thromboplastin Time 28 Seconds (21-31); Prothrombin Time 12.0 Seconds (9.0-12.0)
[2025-07-18 20:40] LABS: Appearance Urine Cloudy (Clear); Bacteria Urine Automated None Seen (None Seen); Epithelial Cell Urine Auto 0-2 /hpf (0-2); Glucose Urine UA Negative (Negative); RBC Urine Automated >20 /hpf (0-2); WBC Urine Automated >50 /hpf (0-5)
[2025-07-18] MEDS: OPTIRAY 320 100ml IV ONE (20:53)
--- NOTE | 2025-07-18 21:01 | XRay Report ---
HISTORY: Chest pain TECHNIQUE: Portable AP radiograph of the chest. COMPARISON: PA and lateral chest radiographs dated 02/24/2017. FINDINGS: Moderate right and small left pleural effusions. Pulmonary vascular congestion. No pneumothorax. Right basilar opacity. Top normal heart size. Left-sided aortic arch. Midline trachea. Right shoulder arthroplasty. Included upper abdomen is unremarkable.Lumbar spine fusion hardware. IMPRESSION: * Moderate right and small left pleural effusions with adjacent basilar airspace opacity, which could represent compressive atelectasis or pneumonia. * Mild pulmonary vascular congestion. Electronically signed by Clyde Cespedes 07-18-2025 9:01 PM
--- NOTE | 2025-07-18 22:23 | CT Scan Report ---
Exam(s): CT CHEST With Contrast IV Amt: 93ml optiray 320 EXAM: CT Chest With Intravenous Contrast CLINICAL HISTORY: ecchymosis to chest wall. TECHNIQUE: Axial computed tomography images of the chest with intravenous contrast. CTDI is 14.98 mGy and DLP is 476 mGy-cm. Automated exposure control was utilized for the study. A dose lowering technique was utilized adhering to the principles of ALARA. CONTRAST: Patient received 93ml optiray 320 of IV contrast COMPARISON: No relevant prior studies available. FINDINGS: Lungs: Dependent subsegmental presumed atelectatic changes in the posterior aspect of both lungs, [id number]-left. No obvious pulmonary contusive injury or focal consolidation. Mild interlobular septal thickening noted at the lung apices. Pleural space: Mild left and [id number] right layering pleural effusions noted with a right effusion demonstrating a posterior and subpulmonic component. No loculation. No pneumothorax. Heart: The cardiac chambers are normal in caliber. Prominent coronary artery calcification and mitral annular calcification. No significant pericardial effusion. Bones/joints: Chronic anterior wedging from T11 through L2 levels with accentuated kyphosis and chronic moderately severe disc spondylosis. No rib fracture. The shoulders are unremarkable. A right shoulder arthroplasty is incidentally noted. Soft tissues: No appreciable significant acute traumatic soft tissue injury with fairly symmetric fat stranding along the posterolateral aspect of the mid to inferior thorax bilaterally. No hematoma. No fluid collection. Vasculature: Atherosclerotic disease. Lymph nodes: No significant abnormality. No enlarged lymph nodes. IMPRESSION: 1. No appreciable significant acute traumatic soft tissue injury with fairly symmetric fat stranding along the posterolateral aspect of the mid to inferior thorax bilaterally. No hematoma. No fluid collection. 2. Mild left and [id number] right layering pleural effusions noted with a right effusion demonstrating a posterior and subpulmonic component. No loculation. 3. Dependent subsegmental presumed atelectatic changes in the posterior aspect of both lungs, [id number]-left. No obvious pulmonary contusive injury or focal consolidation. Mild interlobular septal thickening noted at the lung apices. This suggests mild vascular congestion. Electronically signed by: Sukumar Stoll MD 07/18/25 22:22 PM
--- NOTE | 2025-07-18 22:43 | CT Scan Report ---
Exam(s): CT ABDOMEN + PELVIS With Contrast IV Amt: 93ml optiray 320 EXAM: CT Abdomen and Pelvis With Intravenous Contrast CLINICAL HISTORY: flank hematoma. TECHNIQUE: Axial computed tomography images of the abdomen and pelvis with intravenous contrast. CTDI is 15.42 mGy and DLP is 698.34 mGy-cm. Automated exposure control was utilized for the study. A dose lowering technique was utilized adhering to the principles of ALARA. CONTRAST: Patient received 93ml optiray 320 of IV contrast COMPARISON: CT abdomen and pelvis with contrast dated 06/23/2023 FINDINGS: Lung bases: For findings regarding the lung bases, please see the CT report of the chest performed concurrently. ABDOMEN: Liver: The liver is intact with periportal lucency/edema. Gallbladder and bile ducts: Trace hyperdense material noted posteriorly in the fundus. No gallbladder wall thickening. No calcified stones. No ductal dilation. Pancreas: No significant abnormality. No mass. No ductal dilation. Spleen: No significant abnormality. No splenomegaly. Adrenals: No significant abnormality. No mass. Kidneys and ureters: No significant abnormality. No solid mass. No hydronephrosis. Stomach and bowel: No bowel obstruction. Mild stool burden with prominent diverticulosis of the sigmoid segment. PELVIS: Appendix: No findings to suggest acute appendicitis. Bladder: Abnormal wall thickening involving the posterior aspect of the bladder, new from the previous examination. No bladder stones. Reproductive: Unremarkable as visualized. ABDOMEN and PELVIS: Intraperitoneal space: No significant abnormality. No free air. No significant fluid collection. Bones/joints: Stable appearing chronic anterior wedging involving the thoracolumbar junction with involvement of the L1 and L2 vertebral bodies with accentuated kyphosis of the thoracolumbar junction. Stable posterior fusion from L3 through L5 with pedicle screws and paraspinal rods. Similar scoliosis, convex left. Laminectomy defect noted. Similar slight rotatory component. The pelvic bones are intact. There are chronic degenerative changes of the right hip with erosive remodeling of the femoral head, stable. There is similar cortical thinning of the deep wall of the acetabulum with a slight protrusio component however, there appears to be new subtle cortical offset and lucency superiorly and posteriorly. No dislocation. Soft tissues: Subtle symmetric fat stranding involving the posterolateral aspect of the subcostal soft tissues bilaterally. No hematoma or subcutaneous fluid collection identified. Vasculature: Atherosclerotic disease. No abdominal aortic aneurysm. Lymph nodes: No significant abnormality. No enlarged lymph nodes. IMPRESSION: 1. Subtle symmetric fat stranding involving the posterolateral aspect of the subcostal soft tissues bilaterally. No hematoma or subcutaneous fluid collection identified. The appearance is not definitive for soft tissue injury and may represent mild positive fluid status changes. 2. Chronic degenerative changes of the right hip with erosive remodeling of the femoral head, stable. There is similar cortical thinning of the deep wall of the acetabulum with a slight protrusio component however, there appears to be new subtle cortical offset and lucency superiorly and posteriorly. Subtle pathologic fracture is not excluded. 3. Abnormal wall thickening involving the posterior aspect of the bladder, new from the previous examination. No bladder stones. This is slightly greater than expected for degree of partial decompression, which raises the concern for potential subtle cystitis or developing hypertrophic changes. Electronically signed by: Sukumar Stoll MD 07/18/25 22:42 PM
--- NOTE | 2025-07-18 23:41 | Emergency Department Note ---
History of Present Illness General Chief complaint: Illness Stated complaint: MILD SOB, GAINED 10LBS IN MONTH Time Seen by Provider: 07/18/25 18:53 Source: family and RN notes reviewed Mode of arrival: EMS History of Present Illness Patient is an 84-year-old female with history of dementia, hypertension, OA/DJD, chronic back pain, RASHMI/depression, GERD, chronic hyponatremia who presents from outpatient group home facility for lower extremity edema. EMS did have to place patient on 2 L prior to arrival. According to her family she recently had a UTI and finished a course of Macrobid. Her family also notes that she had has had increased falls recently as she continues to get out of her wheelchair on her own unassisted. She did fall on Tuesday and family noticed that she had bruising under her breast and her right mid back. Patient is on Lasix 20 mg daily as well as baby aspirin. No other blood thinners reported. No known or reported head injury. Patient is at her baseline mental status at this time. No reported fevers, chills, chest pain, increased work of breathing, vomiting, diarrhea, abdominal pain. Home Medications Medication Instructions Recorded Confirmed Type aspirin 81 mg tablet,delayed 81 mg PO DAILY 12/26/20 07/18/25 History release Wheelchair (Manual) (Manual #1 ea 07/15/23 02/19/25 Rx Wheelchair) ezetimibe 10 mg tablet (Zetia) 10 mg PO DAILY #90 tabs 05/28/25 07/18/25 Rx omeprazole 20 mg capsule,delayed 20 mg PO DAILY #90 caps 05/28/25 07/18/25 Rx release atorvastatin 80 mg tablet 80 mg PO DAILY #90 tabs 06/24/25 07/18/25 Rx celecoxib 200 mg capsule (Celebrex) 200 mg PO DAILY #90 caps 06/24/25 07/18/25 Rx escitalopram oxalate 10 mg tablet 10 mg PO DAILY #90 tabs 06/24/25 07/18/25 Rx (Lexapro) furosemide 20 mg tablet (Lasix) 10 mg (1/2 x 20 mg) PO BID #45 tabs 06/24/25 07/18/25 Rx lisinopril 10 mg tablet 10 mg PO DAILY #90 tabs 06/24/25 07/18/25 Rx acetaminophen 325 mg tablet 325 mg PO AMHS #60 tabs 07/17/25 07/18/25 Rx coenzyme Q10 100 mg capsule 100 mg PO DAILY #90 caps 07/17/25 07/18/25 Rx Allergies Allergy/AdvReac Type Severity Reaction Status Date / Time Cephalosporins Allergy Intermediate ITCHY Verified 07/18/25 19:59 Penicillins Allergy Intermediate ITCHING;JOSE Verified 07/18/25 19:59 MA prednisone Allergy Unknown Unknown Verified 07/18/25 19:59 tramadol Allergy Unknown Unknown Verified 07/18/25 19:59 morphine AdvReac Severe nausea and Verified 07/18/25 19:59 vomiting/lethargic/confusion Past Med/Surg History Problem List (Updated 07/18/25 @ 23:41 by Vlad Kaur MD) Cystitis (Acute) Pleural effusion, bilateral (Acute) CHF exacerbation (Acute) Excessive cerumen in both ear canals Urinary symptom or sign Anemia Encounter for examination following treatment at hospital GERD with esophagitis Acute hip pain (Acute) Acute ankle pain (Acute) Abnormal urinalysis Ambulatory dysfunction CAD (coronary artery disease) Dementia Right hip pain Physical deconditioning Decreased hearing of both ears Routine health maintenance Elevated hemoglobin A1c Gait apraxia of elderly Abnormal head CT Mild cognitive impairment Hyponatremia Cognitive deficits Back pain Left thyroid nodule HTN (hypertension), benign Hyponatremia SAH (subarachnoid hemorrhage) (Acute) Recurrent falls Encounter for immunization Memory loss Memory loss Fall Allergic rhinitis Sore throat Anterior cervical adenopathy UTI (urinary tract infection) DM (diabetes mellitus), type 2 (Chronic) History of back surgery Anxiety Chronic reflux esophagitis Dyslipidemia (Chronic) Hypertension Insomnia (Chronic) Osteoarthritis Peripheral neuropathy (Chronic) Rheumatic heart disease Lumbar stenosis with neurogenic claudication (Acute 03/13/14) Medical History Fall Osteopenia Surgical History History of ventral hernia repair History of tonsillectomy History of vaginal surgery History of hysterectomy Family History Mother Malignant neoplasm of brain Pancreatic cancer Father Malignant neoplasm of brain Alzheimer disease Pancreatic cancer Myocardial infarction Sister Malignant neoplasm of brain Denies family history of Ovarian cancer Prostate cancer Breast cancer Colorectal cancer Social History (Updated 02/19/25 @ 12:57 by Lauren Haney LPN) Smoking Status: Never smoker Second Hand Exposure: No; Do You Dip or Chew Tobacco: No; Hx Alcohol Use: No Hx Substance Use: No Preferred Language: Bengali Communication Ability: Effective Hearing Ability: Use of Hearing Aid Rn Testing Required: No Beliefs That Will Affect Care: Faith Faith Beliefs: Zoroastrian marital status: Current Living Situation: Spouse current occupational status: retired How many Children do You have: 3 Feels Safe at Home: Yes Childhood Exposure to Second-Hand Smoke: Yes Diet: regular caffeine: Yes Dental Care, Regularly: No Physical Activity Frequency: Does not Exercise Seatbelt Use: always Sunscreen Use: Yes Assistive Devices: Lift Chair, Walker and Other Review of Systems Review of systems negative outside of positive findings mentioned in HPI. Physical Exam Vital Signs Vital Signs - 24 hr 07/18/25 17:29 07/18/25 17:29 07/18/25 17:54 Temperature 36.0 C L Temperature Source Temporal Artery Scan Pulse Rate 78 Pulse Rate [Finger] Respiratory Rate 18 Blood Pressure 185/70 H Blood Pressure [Right Arm] Blood Pressure Mean 108 Blood Pressure Mean [Right Arm] Pulse Oximetry 98 98 95 Oxygen Delivery Method Room Air Room Air Room Air Oxygen Flow Rate Sepsis Recent Fever Within 48 Hours No Sepsis New/Unexplained Change in Mental Status No Sepsis Action Taken by Nursing No Action Required 07/18/25 18:01 07/18/25 18:01 07/18/25 19:37 Temperature Temperature Source Pulse Rate 79 Pulse Rate [Finger] Respiratory Rate Blood Pressure Blood Pressure [Right Arm] Blood Pressure Mean Blood Pressure Mean [Right Arm] Pulse Oximetry 97 97 Oxygen Delivery Method Room Air Room Air Oxygen Flow Rate Sepsis Recent Fever Within 48 Hours Sepsis New/Unexplained Change in Mental Status Sepsis Action Taken by Nursing 07/18/25 20:00 07/18/25 22:00 Temperature Temperature Source Pulse Rate Pulse Rate [Finger] 74 72 Respiratory Rate 20 18 Blood Pressure Blood Pressure [Right Arm] 179/89 H 162/86 H Blood Pressure Mean Blood Pressure Mean [Right Arm] 119 111 Pulse Oximetry 96 93 Oxygen Delivery Method Room Air Nasal Cannula Oxygen Flow Rate 2 Sepsis Recent Fever Within 48 Hours Sepsis New/Unexplained Change in Mental Status Sepsis Action Taken by Nursing See below Constitutional WD/WN, vitals as above Eyes PERRL, conjunctivae normal, anicteric sclerae ENMT external ear and nose normal, oropharynx normal Respiratory Decreased bibasilar breath sounds, no increased work of breathing or accessory muscle use Cardiovascular Rate/Rhythm: regular rate Heart Sounds: + murmur Extremities: + pedal edema and + edema; no calf tenderness Non-pitting edema to the knees b/l Chest (Breasts) Additional Comments: Ecchymosis noted under the breast bilaterally, no crepitus or tenderness to palpation of the chest wall Gastrointestinal (Abdomen) normal bowel sounds, soft, nontender, no hepatosplenomegaly Ecchymosis noted to the right flank Neurologic CN's II-XI intact bilaterally and awake; no focal motor deficit Course Administered Medications Discontinued Medications Ioversol (Optiray 320 100ml) 93 ml IV ONCE ONE Stop: 07/18/25 20:53 Last Admin: 07/18/25 20:53 Dose: 93 ml Documented By: DONELL Medical Decision Making Differential Diagnosis DDx includes but not limited to: Pulmonary edema, CHF exacerbation, pleural effusions, rib fractures, chest wall contusions, soft tissue contusion, renal injury Medical Records Attestation: I reviewed the patient's medical records. Home Medications Current Medication List: was personally reviewed by me Laboratory Data Attestation: I reviewed the patient's lab results. 07/18/25 19:00 07/18/25 19:00 Lab Results 07/18/25 07/18/25 Range/Units 19:00 20:26 WBC 8.87 (4.8-10.8) K/ul RBC 4.10 L (4.20-5.40) M/uL Hgb 9.6 L (12.0-16.0) g/dL Hct 30.0 L (37.0-47.0) % MCV 73.2 L (80.0-100.0) fL MCH 23.4 L (25.0-34.0) pg MCHC 32.0 (32.0-36.0) g/dL RDW Std Deviation 40.3 (36.4-46.3) fL RDW Coeff of Jan 15.4 H (11.5-14.5) % Plt Count 372 (130-400) K/uL MPV 8.9 L (9.4-12.4) fL Immature Gran % (Auto) 0.7 % Neut % (Auto) 70.6 % Lymph % (Auto) 13.4 % [place] % (Auto) 12.2 % Eos % (Auto) 2.3 % Baso % (Auto) 0.8 % Neut # (Auto) 6.27 (1.40-6.50) K/uL Lymph # (Auto) 1.19 L (1.20-3.40) K/uL [place] # (Auto) 1.08 H (0.11-0.59) K/uL Eos # (Auto) 0.20 (0.00-0.50) K/uL Baso # (Auto) 0.07 (0.00-0.20) K/uL Immature Gran # (Auto) 0.06 (0.01-0.20) K/uL PT 12.0 (9.0-12.0) Seconds INR 1.1 (0.9-1.1) APTT 28 (21-31) Seconds PTT Ratio 1.0 Sodium 125 L (136-145) mmol/L Potassium 4.4 (3.5-5.1) mmol/L Chloride 92 L (98-107) mmol/L Carbon Dioxide 26 (21-32) mmol/L Anion Gap 7 (3-11) BUN 14 (6-23) mg/dl Creatinine 0.78 (0.6-1.2) mg/dl Est Cr Clr Drug Dosing 42.6 ml/min eGFR 74.39 BUN/Creatinine Ratio 17.9 (10-20) Glucose 113 H (70-99(Fasting)) mg/dl Calcium 9.1 (8.6-10.3) mg/dl Total Bilirubin 0.9 (0.2-1.0) mg/dl AST 18 (13-39) U/L ALT 10 (7-52) U/L Alkaline Phosphatase 72 (34-104) U/L Troponin I High Sens 14.0 (0-14) pg/ml B-Natriuretic Peptide 1002 H (0-100) pg/ml Total Protein 7.5 (6.0-8.3) gm/dl Albumin 4.0 (3.4-5.0) gm/dl Globulin 3.5 (2.5-4.0) gm/dl Albumin/Globulin Ratio 1.1 (0.9-2) Urine Color Yellow Urine Appearance Cloudy A (Clear) Urine pH 6.5 (4.5-7.5) Ur Specific [place] 1.005 (1.000-1.030) Urine Protein Trace H (Negative) Urine Glucose (UA) Negative (Negative) Urine Ketones Negative (Negative) Urine Blood 2+ H (Negative) Urine Nitrite Negative (Negative) Urine Bilirubin Negative (Negative) Urine Urobilinogen Negative (Negative) Ur Leukocyte Esterase 3+ H (Negative) Urine WBC (Auto) >50 H (0-5) /hpf Urine RBC (Auto) >20 H (0-2) /hpf U Hyaline Cast (Auto) 3-5 H (0-2) /lpf U Epithel Cells (Auto) 0-2 (0-2) /hpf Urine Bacteria (Auto) None Seen (None Seen) Urine Comment Imaging Data Attestation: I personally reviewed and interpreted this imaging study as follows: My Impression: Bilateral pleural effusions right greater than left, pulmonary vascular congestion noted Radiologist's Impression: Chest X-Ray 07/18/25 18:01 HISTORY: Chest pain TECHNIQUE: Portable AP radiograph of the chest. COMPARISON: PA and lateral chest radiographs dated 02/24/2017. FINDINGS: Moderate right and small left pleural effusions. Pulmonary vascular congestion. No pneumothorax. Right basilar opacity. Top normal heart size. Left-sided aortic arch. Midline trachea. Right shoulder arthroplasty. Included upper abdomen is unremarkable.Lumbar spine fusion hardware. IMPRESSION: * Moderate right and small left pleural effusions with adjacent basilar airspace opacity, which could represent compressive atelectasis or pneumonia. * Mild pulmonary vascular congestion. Electronically signed by Clyde Cespedes 07-18-2025 9:01 PM Abdomen/Pelvis CT 07/18/25 20:11 Exam(s): CT ABDOMEN + PELVIS With Contrast IV Amt: 93ml optiray 320 EXAM: CT Abdomen and Pelvis With Intravenous Contrast CLINICAL HISTORY: flank hematoma. TECHNIQUE: Axial computed tomography images of the abdomen and pelvis with intravenous contrast. CTDI is 15.42 mGy and DLP is 698.34 mGy-cm. Automated exposure control was utilized for the study. A dose lowering technique was utilized adhering to the principles of ALARA. CONTRAST: Patient received 93ml optiray 320 of IV contrast COMPARISON: CT abdomen and pelvis with contrast dated 06/23/2023 FINDINGS: Lung bases: For findings regarding the lung bases, please see the CT report of the chest performed concurrently. ABDOMEN: Liver: The liver is intact with periportal lucency/edema. Gallbladder and bile ducts: Trace hyperdense material noted posteriorly in the fundus. No gallbladder wall thickening. No calcified stones. No ductal dilation. Pancreas: No significant abnormality. No mass. No ductal dilation. Spleen: No significant abnormality. No splenomegaly. Adrenals: No significant abnormality. No mass. Kidneys and ureters: No significant abnormality. No solid mass. No hydronephrosis. Stomach and bowel: No bowel obstruction. Mild stool burden with prominent diverticulosis of the sigmoid segment. PELVIS: Appendix: No findings to suggest acute appendicitis. Bladder: Abnormal wall thickening involving the posterior aspect of the bladder, new from the previous examination. No bladder stones. Reproductive: Unremarkable as visualized. ABDOMEN and PELVIS: Intraperitoneal space: No significant abnormality. No free air. No significant fluid collection. Bones/joints: Stable appearing chronic anterior wedging involving the thoracolumbar junction with involvement of the L1 and L2 vertebral bodies with accentuated kyphosis of the thoracolumbar junction. Stable posterior fusion from L3 through L5 with pedicle screws and paraspinal rods. Similar scoliosis, convex left. Laminectomy defect noted. Similar slight rotatory component. The pelvic bones are intact. There are chronic degenerative changes of the right hip with erosive remodeling of the femoral head, stable. There is similar cortical thinning of the deep wall of the acetabulum with a slight protrusio component however, there appears to be new subtle cortical offset and lucency superiorly and posteriorly. No dislocation. Soft tissues: Subtle symmetric fat stranding involving the posterolateral aspect of the subcostal soft tissues bilaterally. No hematoma or subcutaneous fluid collection identified. Vasculature: Atherosclerotic disease. No abdominal aortic aneurysm. Lymph nodes: No significant abnormality. No enlarged lymph nodes. IMPRESSION: 1. Subtle symmetric fat stranding involving the posterolateral aspect of the subcostal soft tissues bilaterally. No hematoma or subcutaneous fluid collection identified. The appearance is not definitive for soft tissue injury and may represent mild positive fluid status changes. 2. Chronic degenerative changes of the right hip with erosive remodeling of the femoral head, stable. There is similar cortical thinning of the deep wall of the acetabulum with a slight protrusio component however, there appears to be new subtle cortical offset and lucency superiorly and posteriorly. Subtle pathologic fracture is not excluded. 3. Abnormal wall thickening involving the posterior aspect of the bladder, new from the previous examination. No bladder stones. This is slightly greater than expected for degree of partial decompression, which raises the concern for potential subtle cystitis or developing hypertrophic changes. Electronically signed by: Sukumar Stoll MD 07/18/25 22:[address] 07/18/25 20:11 Exam(s): CT CHEST With Contrast IV Amt: 93ml optiray 320 EXAM: CT Chest With Intravenous Contrast CLINICAL HISTORY: ecchymosis to chest wall. TECHNIQUE: Axial computed tomography images of the chest with intravenous contrast. CTDI is 14.98 mGy and DLP is 476 mGy-cm. Automated exposure control was utilized for the study. A dose lowering technique was utilized adhering to the principles of ALARA. CONTRAST: Patient received 93ml optiray 320 of IV contrast COMPARISON: No relevant prior studies available. FINDINGS: Lungs: Dependent subsegmental presumed atelectatic changes in the posterior aspect of both lungs, [id number]-left. No obvious pulmonary contusive injury or focal consolidation. Mild interlobular septal thickening noted at the lung apices. Pleural space: Mild left and znyy-cy-[id number] right layering pleural effusions noted with a right effusion demonstrating a posterior and subpulmonic component. No loculation. No pneumothorax. Heart: The cardiac chambers are normal in caliber. Prominent coronary artery calcification and mitral annular calcification. No significant pericardial effusion. Bones/joints: Chronic anterior wedging from T11 through L2 levels with accentuated kyphosis and chronic moderately severe disc spondylosis. No rib fracture. The shoulders are unremarkable. A right shoulder arthroplasty is incidentally noted. Soft tissues: No appreciable significant acute traumatic soft tissue injury with fairly symmetric fat stranding along the posterolateral aspect of the mid to inferior thorax bilaterally. No hematoma. No fluid collection. Vasculature: Atherosclerotic disease. Lymph nodes: No significant abnormality. No enlarged lymph nodes. IMPRESSION: 1. No appreciable significant acute traumatic soft tissue injury with fairly symmetric fat stranding along the posterolateral aspect of the mid to inferior thorax bilaterally. No hematoma. No fluid collection. 2. Mild left and [id number] right layering pleural effusions noted with a right effusion demonstrating a posterior and subpulmonic component. No loculation. 3. Dependent subsegmental presumed atelectatic changes in the posterior aspect of both lungs, [id number]-[id number]-[id number]-left. No obvious pulmonary contusive injury or focal consolidation. Mild interlobular septal thickening noted at the lung apices. This suggests mild vascular congestion. Electronically signed by: Sukumar Stoll MD 07/18/25 22:22 PM ECG Data Attestation: I personally reviewed and interpreted this ECG as follows: Indication: + SOB/dyspnea Rate (beats per minute): 72 ECG Intervals/blocks: + Normal QRS, + Normal QT and + Normal DC ECG [place]: + Normal ECG ST segments: + Normal ST segments Comparison ECG Date: from (05/07/2023) Change: the following changes noted (T wave inversions in V2 and aVL resolved ) Blood Pressure Blood Pressure Findings: Elevated blood pressure MDM Narrative Patient is a 84-year-old female presents from group home facility for lower extremity edema and shortness of breath as well as recent weight gain. Oxygen saturation is 95% on 2 L here today. Otherwise no significant work of breathing noted. She does exhibit significant lower extremity edema extending up to her waist. Chest x-ray shows bilateral pleural effusions right greater than left. She also is noted to have ecchymosis across her chest wall and right flank most likely from recent fall on Tuesday. No reported head injury or sign of head trauma today. No reported neck pain or indications for CT of the head or cervical spine. CT imaging of the chest shows no evidence of traumatic injury. Layering pleural effusions noted. Findings of soft tissue edema noted as well. CT of the abdomen and pelvis shows no evidence of intra-abdominal trauma or renal injury specifically. Lab work ordered and reviewed. No leukocytosis or bandemia noted. Chronic anemia. Chronic hyponatremia with a sodium level of 125 here today. BNP elevated to greater than 1000 consistent with CHF exacerbation. UA does show a persistent UTI as well and patient was given IV Rocephin here in the ED. A dose of IV Lasix was also given here today. Patient stable for admission to hospitalist service for CHF exacerbation, pleural effusions and yeast cystitis after failed outpatient treatment. Impression & Plan CHF exacerbation, Pleural effusion, bilateral, Cystitis Discharge Plan Visit Data Chief Complaint: Illness Stated Complaint: MILD SOB, GAINED 10LBS IN MONTH ED Provider: Vlad Kaur Discharge Problem: CHF exacerbation, Pleural effusion, bilateral, Cystitis Patient Disposition: Admitted As Inpatient Condition: Good Forms Stand Alone Forms: My [facility] Prescriptions Prescriptions: No Action omeprazole 20 mg capsule,delayed release(DR/EC) 20 mg PO DAILY Qty: 90 3RF ezetimibe [Zetia] 10 mg tablet 10 mg PO DAILY Qty: 90 3RF atorvastatin 80 mg tablet 80 mg PO DAILY Qty: 90 3RF furosemide [Lasix] 20 mg tablet 10 mg PO BID Qty: 45 3RF Rx Instructions: TAKES 0800 & 1400 escitalopram oxalate [Lexapro] 10 mg tablet 10 mg PO DAILY Qty: 90 3RF celecoxib [Celebrex] 200 mg capsule 200 mg PO DAILY Qty: 90 3RF lisinopril 10 mg tablet 10 mg PO DAILY Qty: 90 3RF acetaminophen 325 mg tablet 325 mg PO AMHS Qty: 60 1RF coenzyme Q10 100 mg capsule 100 mg PO DAILY Qty: 90 3RF (DME) Manual Wheelchair Device See Rx Instructions .Route Qty: 1 0RF Rx Instructions: WITH LOCK EXTENTIONS aspirin 81 mg tablet,delayed release (DR/EC) 81 mg PO DAILY Referrals Referrals: Lorene Murray MD [Primary Care Provider] -
[2025-07-18] MEDS: FUROSEMIDE 40 MG/4 ML VIAL IV ONE (23:43)
[2025-07-18] MEDS: CIPROFLOXACIN / D5W 400 MG/200 ML BAG IV STA (23:44)
--- NOTE | 2025-07-19 00:10 | History & Physical Report ---
Date of Service July 19, 2025 Assessment & Plan (1) CHF exacerbation: (2) Pleural effusion, bilateral: (3) Cystitis: (4) Ambulatory dysfunction: Plan Patient is an 84-year-old female with a past medical history of GERD, CAD, dementia, chronic hyponatremia (baseline 130 and follows with nephrology), HTN, subarachnoid hemorrhage, type II DM, rheumatic heart disease. Patient presented via EMS from [facility] as they were concerned about a 10 pound weight gain over the past month. Workup in the ED revealed bilateral pleural effusions, anasarca, patient hypoxic on 2L NC. She is being admitted for further CHF workup. Patient also found to have a UTI. #CHF/bilateral pleural effusion/Hypoxia - No confirmed history of CHF however on Lasix 10 mg twice daily, most recent echo 2019 revealed EF 60 to 64%. Chest CT revealed mild left and mild to moderate right layering pleural effusions. BNP 1002. - patient titrated to room air from 2L NC in the ED - diuresis with lasix 40mg IV in ED; continue diuresis with Lasix 20 Mg IV twice daily - Strict I&O monitoring - Daily weights - amor stockings, promote leg elevation - incentive spirometry - heart healthy low sodium diet - oxygen as needed for O2 <92% - daily BMP and Mg with diuretic use could consider pulm consult if diuresis fails for possible thoracentesis #UTIreportedly treated with Macrobid 07/01 to 07/07. UA concerning for infection with 3+ LE, and > 50 WBC. Nonseptic presentationno leukocytosis, VSS. AP CT revealed cystitis. Given penicillin and cephalosporin allergy will continue Cipro floxacillin IV started in the ED Follow urine cultures - trend cbc #ambulatory dysfunction/fallreported fall 07/09. Uses wheelchair at baseline however able to independently transfer. - AP CT with no acute abnormalities however noted chronic degenerative changes of right hip which is a subtle pathologic fracture not excluded If patient complaining of persistent right hip pain could consider further workup Fall precautions #Hyponatremiafollows with nephrology (low NA intake versus SIADH), baseline NA 130. Sodium 125 on admission Asymptomatic Trend BMP with IV diuresis as above #HLDcontinue baby aspirin, statin, CDA #HTNcontinue lisinopril #dementia at baseline. continue escitalopram. #GERDcontinue PPI VTE ppx: SCDs, defer chemical ppx in keo that patient requires thoracentesis Dispo: PCU Admission and Anticipated Discharge Date Admission Date: 07/19/25 History of Present Illness Chief Complaint: illness Primary Care Provider: Lorene Murray MD Patient is an 84-year-old female with a past medical history of GERD, CAD, dementia, chronic hyponatremia (baseline 130 and follows with nephrology), HTN, subarachnoid hemorrhage, type II DM, rheumatic heart disease. Patient presented via EMS from [facility] as they were concerned about a 10 pound weight gain over the past month. Workup in the ED revealed bilateral pleural effusions, anasarca, patient hypoxic on 2L NC. She is being admitted for further CHF workup. Patient also found to have a UTI. Patient seen at bedside with her daughter and son-in-law present. Patient is completely disoriented which is her baseline however pleasant. She denies any chest pain, shortness of breath, abdominal pain, nausea, vomiting. She feels well and is just hungry. Following history was obtained by the patient's daught er. She stated they were visiting her today and there was no mention of the weight gain however staff called EMS this evening as they stated she is gaining 10 pounds since 07/05. Patient does endorse bilateral lower extremity edema. They stated she was also treated for UTI from 07/01 to 07/07 however there was concern about her taking these medications consistently. they stated that she had a fall on 07/09 in which the patient slid out of her wheelchair. She is unable to ambulate at baseline however is able to do transfers on her own from her wheelchair. Patient denies any pain. They wish to maintain her DNR/DNI status. Discussed treating edema and pleural effusions with IV diuretics however if fails to improve, may need to consider thoracentesis which they would consider if recommended. Allergies Allergy/AdvReac Type Severity Reaction Status Date / Time Cephalosporins Allergy Intermediate ITCHY Verified 07/18/25 19:59 Penicillins Allergy Intermediate ITCHING;JOSE Verified 07/18/25 19:59 MA prednisone Allergy Unknown Unknown Verified 07/18/25 19:59 tramadol Allergy Unknown Unknown Verified 07/18/25 19:59 morphine AdvReac Severe nausea and Verified 07/18/25 19:59 vomiting/lethargic/confusion Home Medications Medication Instructions Recorded Confirmed Type aspirin 81 mg tablet,delayed 81 mg PO DAILY 12/26/20 07/18/25 History release Wheelchair (Manual) (Manual #1 ea 07/15/23 02/19/25 Rx Wheelchair) ezetimibe 10 mg tablet (Zetia) 10 mg PO DAILY #90 tabs 05/28/25 07/18/25 Rx omeprazole 20 mg capsule,delayed 20 mg PO DAILY #90 caps 05/28/25 07/18/25 Rx release atorvastatin 80 mg tablet 80 mg PO DAILY #90 tabs 06/24/25 07/18/25 Rx celecoxib 200 mg capsule (Celebrex) 200 mg PO DAILY #90 caps 06/24/25 07/18/25 Rx escitalopram oxalate 10 mg tablet 10 mg PO DAILY #90 tabs 06/24/25 07/18/25 Rx (Lexapro) furosemide 20 mg tablet (Lasix) 10 mg (1/2 x 20 mg) PO BID #45 tabs 06/24/25 07/18/25 Rx lisinopril 10 mg tablet 10 mg PO DAILY #90 tabs 06/24/25 07/18/25 Rx acetaminophen 325 mg tablet 325 mg PO AMHS #60 tabs 07/17/25 07/18/25 Rx coenzyme Q10 100 mg capsule 100 mg PO DAILY #90 caps 07/17/25 07/18/25 Rx Past Med/Surg History Problem List Cystitis (Acute) Pleural effusion, bilateral (Acute) CHF exacerbation (Acute) Excessive cerumen in both ear canals Urinary symptom or sign Anemia Encounter for examination following treatment at hospital GERD with esophagitis Acute hip pain (Acute) Acute ankle pain (Acute) Abnormal urinalysis Ambulatory dysfunction CAD (coronary artery disease) Dementia Right hip pain Physical deconditioning Decreased hearing of both ears Routine health maintenance Elevated hemoglobin A1c Gait apraxia of elderly Abnormal head CT Mild cognitive impairment Hyponatremia Cognitive deficits Back pain Left thyroid nodule HTN (hypertension), benign Hyponatremia SAH (subarachnoid hemorrhage) (Acute) Recurrent falls Encounter for immunization Memory loss Memory loss Fall Allergic rhinitis Sore throat Anterior cervical adenopathy UTI (urinary tract infection) DM (diabetes mellitus), type 2 (Chronic) History of back surgery Anxiety Chronic reflux esophagitis Dyslipidemia (Chronic) Hypertension Insomnia (Chronic) Osteoarthritis Peripheral neuropathy (Chronic) Rheumatic heart disease Lumbar stenosis with neurogenic claudication (Acute 03/13/14) Medical History Fall Osteopenia Surgical History History of ventral hernia repair History of tonsillectomy History of vaginal surgery defect repair History of hysterectomy Family History Mother Malignant neoplasm of brain Pancreatic cancer Father Malignant neoplasm of brain Alzheimer disease Pancreatic cancer Myocardial infarction Sister Malignant neoplasm of brain Denies family history of Ovarian cancer Prostate cancer Breast cancer Colorectal cancer Social History Smoking Status: Never smoker Second Hand Exposure: No; Do You Dip or Chew Tobacco: No; Hx Alcohol Use: No Hx Substance Use: No Preferred Language: Setswana Communication Ability: Effective Hearing Ability: Use of Hearing Aid Sdc Teacher Required: No Beliefs That Will Affect Care: Taoist Taoist Beliefs: Adventism marital status: Current Living Situation: Spouse current occupational status: retired How many Children do You have: 3 Feels Safe at Home: Yes Childhood Exposure to Second-Hand Smoke: Yes Diet: regular caffeine: Yes Dental Care, Regularly: No Physical Activity Frequency: Does not Exercise Seatbelt Use: always Sunscreen Use: Yes Assistive Devices: Lift Chair, Walker and Other Review of Systems Review of Systems: see HPI Physical Exam Physical Exam: The patient is awake, disoriented, well developed and well nourished, normocephalic,, in no acute distress. Non-toxic appearing. HEENT- EOMI, mucous membranes dry. Hard of hearing. Heart-normal S1 and S2. No murmurs, rubs or gallops. Lungs-decreased bilaterally, no respiratory distress, no accessory muscle use. Abdomen-normal bowel sounds and soft. No ascites noted. Non-tender. Extremities- no clubbing, cyanosis. +3 pitting edema of BL LE that extends into abdomen/ anasarca. Psychiatric-normal affect. Results & Data Results & Data Vital Signs (Past 12 Hours) Vital Signs Temp Pulse Pulse Resp BP BP Pulse Ox 07/18/25 23:40 69 07/18/25 23:30 70 16 156/65 H 94 07/18/25 23:00 71 18 158/59 H 95 07/18/25 22:00 72 18 162/86 H 93 07/18/25 20:00 74 20 179/89 H 96 07/18/25 19:37 79 07/18/25 18:01 97 07/18/25 18:01 97 07/18/25 17:54 36.0 C L 78 18 185/70 H 95 07/18/25 17:29 98 07/18/25 17:29 98 O2 Del Method O2 Flow Rate 07/18/25 23:40 07/18/25 23:30 Room Air 07/18/25 23:00 Room Air 07/18/25 22:00 Nasal Cannula 2 07/18/25 20:00 Room Air 07/18/25 19:37 07/18/25 18:01 Room Air 07/18/25 18:01 Room Air 07/18/25 17:54 Room Air 07/18/25 17:29 Room Air 07/18/25 17:29 Room Air Laboratory Results reviewed CBC, PT/INR, CMP, troponin, BNP, UA Diagnostic Findings Reviewed chest CT, abdomen pelvis CT, CXR Medications Administered EDCipro 400 mg IV, Lasix 40 mg IV ECG Additional Comments: NSR, rate 72 QTc 96 Code Status & VTE Plan Code Status dnr/dni VTE Prophylaxis Plan VTE Prophylaxis will be ordered: Yes Supervising Physician Co-Signing Physician Notes Patient seen and examined, chart reviewed, case discussed with RANDEE Cunningham and I agree with the assessment and plan as above Rapid weight gain with clinical evidence of volume overload - anasarca, pleural effusions. Small O2 requirement in the ER which is new On exam patient with significant bilateral LE edema Diminished breath sounds right lung base, no wheeze Abd soft, NT/ND Labs and images reviewed Assessment/Plan -Diuresis with Lasix 20mg IV BID -Monitor intake and output, daily weights -Monitor response of pleural effusion - may need thoracentesis if it fails to improve with diuretics along -Remainder as above PG Care Time/CCT Total # of Minutes Spent Total Time Spent with Patient: Total time spent is greater than 50% in coordination of care (as documented) at patient's floor/unit and/or counseling patient: Coding Level of Care Code 98254 INT INP/OBS CARE 3/75MIN Diagnoses CHF exacerbation I50.9 Pleural effusion, bilateral J90 Cystitis N30.90 Ambulatory dysfunction R26.2
[2025-07-19] MEDS ORDERED: MELATONIN 3 MG TAB PO PRN (04:16)
[2025-07-19 05:15] LABS: Hematocrit (blood only) 29.9 % (37.0-47.0); Hemoglobin 9.8 g/dL (12.0-16.0); Mean Corpuscular Hemoglobin 23.4 pg (25.0-34.0); Mean Corpuscular Volume 71.4 fL (80.0-100.0); Platelet Count 333 K/uL (130-400); RDW Standard Deviation 38.9 fL (36.4-46.3); Red Blood Count 4.19 M/uL (4.20-5.40); White Blood Count 7.12 K/ul (4.8-10.8)
[2025-07-19 05:29] LABS: Anion Gap 9.0 (3-11); Blood Urea Nitrogen 13.0 mg/dl (6-23); Calcium 9.0 mg/dl (8.6-10.3); Carbon Dioxide 27.0 mmol/L (21-32); Chloride 94.0 mmol/L (98-107); Creatinine Clr Calc Pharmacy 39.6 ml/min; Glucose 105.0 mg/dl (70-99(Fasting)); Magnesium 1.6 mg/dl (1.7-2.4); Potassium 3.7 mmol/L (3.5-5.1); Sodium 130.0 mmol/L (136-145)
[2025-07-19] MEDS: CeleBREX 200 MG CAP PO SCH (07:39)
[2025-07-19] MEDS: ESCITALOPRAM OXALATE 10 MG TAB PO SCH (07:39)
[2025-07-19] MEDS: EZETIMIBE 10 MG TAB PO SCH (07:39)
[2025-07-19] MEDS: ASPIRIN 81 MG ECTAB PO SCH (07:39)
[2025-07-19] MEDS: ATORVASTATIN 40 MG TAB PO SCH (07:39)
[2025-07-19] MEDS: ONDANSETRON INJ 2 MG/ML 2 ML VIAL IV PRN (07:46)
[2025-07-19] MEDS: FUROSEMIDE INJ 20 MG/2 ML VIAL IV SCH (08:39)
[2025-07-19] MEDS: CIPROFLOXACIN / D5W 400 MG/200 ML BAG IV SCH (12:18)
--- NOTE | 2025-07-19 12:31 | Hospitalist Progress Note ---
Date of Service July 19, 2025 Assessment & Plan (1) CHF exacerbation: (2) Pleural effusion, bilateral: (3) Cystitis: (4) Ambulatory dysfunction: Plan Patient is an 84-year-old female with a past medical history of GERD, CAD, dementia, chronic hyponatremia (baseline 130 and follows with nephrology), HTN, subarachnoid hemorrhage, type II DM, rheumatic heart disease. Patient presented via EMS from [facility] as they were concerned about a 10 pound weight gain over the past month. Workup in the ED revealed bilateral pleural effusions, anasarca, patient hypoxic on 2L NC. She is being admitted for further CHF workup. Patient also found to have a UTI. #Acute HFpEF/bilateral pleural effusion/Hypoxia - No confirmed history of CHF however on Lasix 10 mg twice daily, most recent echo 2019 revealed EF 60 to 64%. Chest CT revealed mild left and mild to moderate right layering pleural effusions. BNP 1002. - patient weaned off O2, now on room air - Given lasix 40mg IV in ED; continue diuresis with Lasix 20 Mg IV twice daily - Strict I&O monitoring - Daily weights - amor stockings, promote leg elevation - incentive spirometry - heart healthy low sodium diet - oxygen as needed for O2 <92% - daily BMP and Mg with diuretic use - renal fxn tolerating diuretics - 2D Echo ordered, results pending #UTIreportedly treated with Macrobid 07/01 to 07/07. UA concerning for infection with 3+ LE, and > 50 WBC. Nonseptic presentationno leukocytosis, VSS. AP CT revealed cystitis. Given penicillin and cephalosporin allergy will continue Cipro 400mg IV BID started in the ED Follow urine cultures - trend cbc #ambulatory dysfunction/fallreported fall 07/09. Uses wheelchair at baseline however able to independently transfer. - AP CT with no acute abnormalities however noted chronic degenerative changes of right hip which is a subtle pathologic fracture not excluded If patient complaining of persistent right hip pain could consider further workup Fall precautions #Hyponatremiafollows with nephrology (low NA intake versus SIADH), baseline NA 130. Secondary now to CHF Sodium 125 on admission--> uptrended to 130 with diuresis #HLDcontinue baby aspirin, statin, CDA #HTNcontinue lisinopril #dementia at baseline. continue escitalopram. #GERDcontinue PPI Trend labs in AM. Consult PT/OT to eval and treat. Continued inpt stay. Await echo report. Anticipate can probably transition to oral Lasix tomorrow. Admission and Anticipated Discharge Date Admission Date: July 19, 2025 Supervising Physician Co-Signing Physician Notes HELDER Supervision Note: I did not personally see or examine the patient today, but I verified all chacon points of HELDER Ramirez's assessment and plan with the following exceptions/additions: Replace mag ith 2 grams IV mag, check Mag level in AM Darshan Marley is a pleasant 84 yo F who was admitted overnight from [facility] for decompensated CHF with hypoxia and UTI. She is currently accompanied by her granddaughters, she verbalizes no complaints, denies dyspnea. Family feel that she has a slight cough. No fever or chills. Family notes she has seen cardiology in the past and was to be on medications but that the facility was not giving them to her. They are not sure what the names/doses of the medications are. She has been weaned off O2 and saturating well on room air. Review of Systems 2 Review of Systems: All systems reviewed and are unremarkable except as noted in HPI and below. Denies fever, chills, fatigue, headache, nasal congestion, sore throat, chest pain, palpitations, orthopnea, PND, abdominal pain, n/v/d, constipation, dysuria, hematuria, frequency, back pain, joint pain, easy bruising or bleeding, skin lesions or rashes. Physical Exam 2 Physical Exam: GENERAL: 84 yo thin frail elderly WF. Awake, alert. No distress. LUNGS: Nonlabored. Diminished in bases bilaterally. No wheezes, rales, rhonchi. CARDIOVASCULAR: Regular rate and rhythm +murmur ABDOMEN: Soft, non-tender and non-distended. BS normoactive x 4 quad. EXTREMITIES: Trace b/l LE edema. Non-tender. Peripheral pulses +2/4. SKIN: R flank ecchymosis. No rashes or lesions. Results & Data Results & Data Vital Signs (Past 12 Hours) Vital Signs Pulse Pulse Resp BP BP Pulse Ox O2 Del Method 07/19/25 12:24 74 18 130/58 L 94 Room Air 07/19/25 08:04 78 17 161/67 H 94 Room Air 07/19/25 07:14 69 07/19/25 06:00 69 12 187/60 H 07/19/25 05:00 73 22 155/82 H 07/19/25 04:03 66 07/19/25 04:00 67 15 163/62 H 07/19/25 03:00 68 20 149/60 H 97 07/19/25 02:30 71 26 H 151/65 H 07/19/25 02:00 70 19 140/102 H 80 L 07/19/25 02:00 71 16 140/102 H 95 Room Air 07/19/25 01:30 70 19 165/72 H 07/19/25 01:00 70 17 166/64 H 07/19/25 01:00 71 17 166/64 H 96 Room Air Laboratory Results 07/19/25 04:57 07/19/25 04:57 PG Care Time/CCT Total # of Minutes Spent Total Time Spent with Patient: Total time spent is greater than 50% in coordination of care (as documented) at patient's floor/unit and/or counseling patient: 36 minutes Coding Level of Care Code None Diagnoses CHF exacerbation I50.9 Pleural effusion, bilateral J90 Cystitis N30.90 Ambulatory dysfunction R26.2
--- NOTE | 2025-07-19 16:35 | XCELERA ---
[id number]
[2025-07-19] MEDS: MAGNESIUM SULFATE / D5W 1 GM/100 ML BAG IV SCH (17:33)
--- NOTE | 2025-07-19 19:07 | Electrocardiogram Report ---
Test Reason : Blood Pressure : */* mmHG Vent. Rate : 72 BPM Atrial Rate : 72 BPM P-R Int : 136 ms QRS Dur : 96 ms QT Int : 382 ms P-R-T Axes : 69 -12 40 degrees QTcB Int : 418 ms Normal sinus rhythm Poor R wave progression, consider anterior CA vs. lead placement vs. LVH Abnormal ECG When compared with ECG of 07-May-2023 14:19, T wave inversion no longer evident in Anterior leads Confirmed by Tenzin Lincoln ([id number]) on 07/19/2025 7:07:26 PM Referred By: Confirmed By: Tenzin Lincoln
[2025-07-20 06:18] LABS: Hematocrit (blood only) 25.5 % (37.0-47.0); Hemoglobin 8.4 g/dL (12.0-16.0); Mean Corpuscular Hemoglobin 23.5 pg (25.0-34.0); Mean Corpuscular Volume 71.2 fL (80.0-100.0); Platelet Count 303 K/uL (130-400); RDW Standard Deviation 39.3 fL (36.4-46.3); Red Blood Count 3.58 M/uL (4.20-5.40); White Blood Count 6.47 K/ul (4.8-10.8)
[2025-07-20 07:03] LABS: Ferritin 16.5 ng/ml (8-388)
[2025-07-20 07:28] LABS: Anion Gap 8.0 (3-11); Calcium 8.5 mg/dl (8.6-10.3); Carbon Dioxide 29.0 mmol/L (21-32); Chloride 92.0 mmol/L (98-107); Magnesium 1.9 mg/dl (1.7-2.4); Potassium 4.1 mmol/L (3.5-5.1); Sodium 129.0 mmol/L (136-145)
[2025-07-20 07:34] LABS: Blood Urea Nitrogen 16.0 mg/dl (6-23); Creatinine Clr Calc Pharmacy 28.7 ml/min; Glucose 104.0 mg/dl (70-99(Fasting)); Iron 18.0 mcg/dl (35-150); Total Iron Binding Cap Calc 367.0 mcg/dl (250-450); Transferrin 262.0 mg/dl (200-360); Transferrin (FE) Percent Satur 5.0 % (15-50)
[2025-07-20] MEDS: DOCUSATE SODIUM 100 MG CAP PO PRN (08:40)
[2025-07-20] MEDS: FUROSEMIDE 40 MG TAB PO SCH (09:07)
[2025-07-20] MEDS ORDERED: IRON SUCROSE 300 MG in SODIUM CHLORIDE 0.9% 250 ML IV ONE (10:15)
--- NOTE | 2025-07-20 10:16 | Hospitalist Progress Note ---
Date of Service July 20, 2025 Assessment & Plan (1) CHF exacerbation: (2) Pleural effusion, bilateral: (3) Cystitis: (4) Ambulatory dysfunction: Plan Patient is an 84-year-old female with a past medical history of GERD, CAD, dementia, chronic hyponatremia (baseline 130 and follows with nephrology), HTN, subarachnoid hemorrhage, type II DM, rheumatic heart disease. Patient presented via EMS from [facility] as they were concerned about a 10 pound weight gain over the past month. Workup in the ED revealed bilateral pleural effusions, anasarca, patient hypoxic on 2L NC. She is being admitted for further CHF workup. Patient also found to have a UTI. #Acute on Chronic HFpEF/bilateral pleural effusion/Hypoxia - No confirmed history of CHF however on Lasix 10 mg twice daily, most recent echo 2019 revealed EF 60 to 64%. Chest CT revealed mild left and mild to moderate right layering pleural effusions. BNP 1002. - patient weaned off O2, now on room air - Given lasix 40mg IV in ED; continued with diuresis with Lasix 20 Mg IV twice daily - Strict I&O monitoring - Daily weights--down 5.3 kg since admission - amor stockings, promote leg elevation - incentive spirometry - heart healthy low sodium diet - oxygen as needed for O2 <92% - daily BMP and Mg with diuretic use - renal fxn tolerating diuretics - 2D Echo ordered, results noting preserved EF 55-60%, mod to severe MR, mild to mod pulmonary HTN - DC IV Lasix and transition to oral Lasix 40mg daily #UTIreportedly treated with Macrobid 07/01 to 07/07. UA concerning for infection with 3+ LE, and > 50 WBC. Nonseptic presentationno leukocytosis, VSS. AP CT revealed cystitis. Given penicillin and cephalosporin allergy will continue Cipro 400mg IV BID started in the ED Follow urine cultures #ambulatory dysfunction/fallreported fall 07/09. Uses wheelchair at baseline however able to independently transfer. - AP CT with no acute abnormalities however noted chronic degenerative changes of right hip which is a subtle pathologic fracture not excluded If patient complaining of persistent right hip pain could consider further workup Fall precautions #Hyponatremiafollows with nephrology (low NA intake versus SIADH), baseline NA 130. Secondary now to CHF Sodium 125 on admission--> uptrended to 130 with diuresis, remains stable at 129 #HLDcontinue baby aspirin, statin, CDA #HTNcontinue lisinopril #dementia at baseline. continue escitalopram. #GERDcontinue PPI #Acute on chronic anemia - Consistently microcytic, iron studies obtained with low serum iron 18 and low ferritin - Check FOBT to r/o GI blood loss - Hgb 8.4 on 07/20, HD stable - Dose of Venofer 300mg IV x1 given Await therapy evals--uncertain if she is safe to return to [facility] or would benefit from SNF. Anticipate will likely be medically optimized for DC tomorrow. Labs ordered including CBC, BMP. Provided update to son via phone on 07/20. Plan d/w Dr. Pate. Admission and Anticipated Discharge Date Admission Date: July 19, 2025 Supervising Physician Co-Signing Physician Notes PA Supervision Note: I did not personally see or examine the patient today, but I verified all chacon points of HELDER Ramirez's assessment and plan with the following exceptions/additions: none Subjective Ayaka was seen on daily rounds this AM. She was admitted 07/19 from [facility] for decompensated CHF with hypoxia and UTI. She is pleasantly confused with underlying dementia but denies complaints. Per nursing she has been asking about her who she lives with at and is on hospice. Review of Systems 2 Review of Systems: All systems reviewed and are unremarkable except as noted in HPI and also endorsing some left sided hip/back pain Physical Exam 2 Physical Exam: GENERAL: 84 yo thin frail elderly WF. Awake, alert. No distress. LUNGS: Nonlabored. Diminished in bases bilaterally. No wheezes, rales, rhonchi. CARDIOVASCULAR: Regular rate and rhythm +murmur ABDOMEN: Soft, non-tender and non-distended. BS normoactive x 4 quad. EXTREMITIES: Trace b/l LE edema. Non-tender. Peripheral pulses +2/4. SKIN: R flank and sternal ecchymosis. No rashes or lesions. Results & Data Results & Data Vital Signs (Past 12 Hours) Vital Signs Temp Pulse Pulse Resp BP Pulse Ox O2 Del Method 07/20/25 07:27 36.7 C 72 20 146/50 H 94 Nasal Cannula 07/20/25 07:02 64 07/20/25 03:11 36.8 C 65 20 137/51 L 96 Nasal Cannula 07/19/25 23:47 36.7 C 72 20 129/49 L 92 Nasal Cannula O2 Flow Rate 07/20/25 07:27 07/20/25 07:02 07/20/25 03:11 2.0 07/19/25 23:47 2.0 Laboratory Results 07/20/25 05:29 07/20/25 05:29 PG Care Time/CCT Total # of Minutes Spent Total Time Spent with Patient: Total time spent is greater than 50% in coordination of care (as documented) at patient's floor/unit and/or counseling patient: 38 minutes Coding Level of Care Code 33336 SUB INP/OBS CARE 2/35MIN Diagnoses CHF exacerbation I50.9 Pleural effusion, bilateral J90 Cystitis N30.90 Ambulatory dysfunction R26.2
[2025-07-20] MEDS: IRON SUCROSE 300 MG in SODIUM CHLORIDE 0.9% 250 ML IV ONE (12:30)
[2025-07-20] MEDS: Nursing to Pharmacy Communication SCH (14:13)
[2025-07-20] MEDS: MUPIROCIN 2% OINT 22 GM TUBE EXT SCH (14:22)
[2025-07-21 06:33] LABS: Hematocrit (blood only) 26.6 % (37.0-47.0); Hemoglobin 8.6 g/dL (12.0-16.0); Immature Granulocytes # (auto) 0.04 K/uL (0.01-0.20); Immature Granulocytes % (auto) 0.5 %; Mean Corpuscular Hemoglobin 23.3 pg (25.0-34.0); Mean Corpuscular Volume 72.1 fL (80.0-100.0); Platelet Count 300 K/uL (130-400); RDW Standard Deviation 40.0 fL (36.4-46.3); Red Blood Count 3.69 M/uL (4.20-5.40); White Blood Count 7.32 K/ul (4.8-10.8)
[2025-07-21 06:52] LABS: Anion Gap 7.0 (3-11); Blood Urea Nitrogen 21.0 mg/dl (6-23); Calcium 8.4 mg/dl (8.6-10.3); Carbon Dioxide 28.0 mmol/L (21-32); Chloride 92.0 mmol/L (98-107); Creatinine Clr Calc Pharmacy 27.4 ml/min; Glucose 103.0 mg/dl (70-99(Fasting)); Potassium 3.9 mmol/L (3.5-5.1); Sodium 127.0 mmol/L (136-145)
[2025-07-21] MEDS: FUROSEMIDE 40 MG/4 ML VIAL IV ONE (09:13)
[2025-07-21] MEDS: CIPROFLOXACIN 500 MG TAB PO SCH (09:21)
[2025-07-21] MEDS: IRON SUCROSE 300 MG in SODIUM CHLORIDE 0.9% 250 ML IV ONE (09:37)
[2025-07-21] MEDS ORDERED: ATROPINE SULFATE 1% OP SOLN 5 ML BTL SL PRN (11:48)
--- NOTE | 2025-07-21 12:06 | Hospitalist Progress Note ---
Date of Service July 21, 2025 Assessment & Plan (1) CHF exacerbation: (2) Pleural effusion, bilateral: (3) Cystitis: (4) Ambulatory dysfunction: Plan Patient is an 84-year-old female with a past medical history of GERD, CAD, dementia, chronic hyponatremia (baseline 130 and follows with nephrology), HTN, subarachnoid hemorrhage, type II DM, rheumatic heart disease. Patient presented via EMS from [facility] as they were concerned about a 10 pound weight gain over the past month. Workup in the ED revealed bilateral pleural effusions, anasarca, patient hypoxic on 2L NC. She is being admitted for further CHF workup. Patient also found to have a UTI. #Comfort measures only status-given CHF, dementia, pt's children desire pt to go on hospice which is quite appropriate. No pain or respiratory distress, no symptoms to be managed acutely at this time -Dc IV meds, lab draws -downgrade off tele -atropine prn secretions -allergic to morphine and none needed at this time-allergy is N/V and lethargy/confusion--> may need alternative opioid if has respiratory distress in future -Roller Coaster Operator making referral to [facility] and will coordinate with [facility] #Acute on Chronic HFpEF/bilateral pleural effusion/Hypoxia/Acute on chronic HFpEF/Pulm HTN/Mitral regurg - No confirmed history of CHF however on Lasix 10 mg twice daily, most recent echo 2019 revealed EF 60 to 64%. Chest CT revealed mild left and mild to moderate right layering pleural effusions. BNP 1002. ECHO here with EF 55-60%, mod-severe MR, mild MS, mid AI, mild-mod Pulm HTN - patient weaned off O2, now on room air, weight down, no respiratory distress after IV lasix -give one more dose IV lasix and then transition to lasix 20mg po qAM for comfort - heart healthy low sodium diet - oxygen as needed for O2 <90% -no further labs on STAVE LOG RIPSAW OPERATOR #UTIreportedly treated with Macrobid 07/01 to 07/07. UA concerning for infection with 3+ LE, and > 50 WBC. Nonseptic presentationno leukocytosis, VSS. AP CT revealed cystitis. Ur cx with Aerococcus urinae Given penicillin and cephalosporin allergy treated with Cipro 400mg IV BID x 2 days-give John 500mg po x 1 and then course completed 07/21 #ambulatory dysfunction/fallreported fall 07/09. Uses wheelchair at baseline however able to independently transfer. - AP CT with no acute abnormalities however noted chronic degenerative changes of right hip which is a subtle pathologic fracture not excluded on STAVE LOG RIPSAW OPERATOR-pain meds as needed for OA #Hyponatremiafollows with nephrology (low NA intake versus SIADH), baseline NA 130. Secondary now to CHF. Nephrology notes state pt on NaCl tabs but not on home med list Sodium 125 on admission--> uptrended to 130 with diuresis, remains stable at 127 -no further lab draws on STAVE LOG RIPSAW OPERATOR -stop NaCl tabs at home #HLDcontinue baby aspirin, but dc statin and Zetia on STAVE LOG RIPSAW OPERATOR #HTNdiscontinue lisinopril on STAVE LOG RIPSAW OPERATOR #dementia/depression at baseline. continue escitalopram. #GERDcontinue PPI #Acute on chronic anemia - Consistently microcytic, iron studies obtained with low serum iron 18 and low ferritin - Check FOBT to r/o GI blood loss - Hgb 8.4 on 07/20, HD stable - Dose of Venofer 300mg IV x1 given DVT prophylaxis-none needed now on STAVE LOG RIPSAW OPERATOR Dispo-plan to dc to [facility] on hospice once arrangements made, likely Mon 07/22. POLST form filled out on 07/21 with daughter/POA Admission and Anticipated Discharge Date Admission Date: July 19, 2025 Subjective Pt has no complaints except that she has to urinate. Daughter and son-in-law at bedside and report that all 3 children now on board with transitioning to hospice at [facility]. Pt's alresdy on hospice there and they would want her to return there with him. I spent 30 min in discussion with pt (although she was not able to participate in conversation due to dementia), daughter/POA, and son-in-law about her care, prognosis, and hospice, filled out POLST form. Tele with NSR, rates 70s Physical Exam Constitutional: WD/WN, vitals as above Respiratory: normal respiratory effort; no cough Auscultation: + diminished lung sounds (at bases) Cardiovascular: Rate/Rhythm: regular rate and regular rhythm Heart Sounds: + murmur (3/6 sys murmur at LSB) Gastrointestinal (Abdomen): normal bowel sounds, soft, nontender, no hepatosplenomegaly Psychiatric: Orientation: alert, oriented to person and cooperative; + not oriented to place and + not oriented to time Results & Data Results & Data Vital Signs (Past 12 Hours) Vital Signs Temp Pulse Pulse Resp BP Pulse Ox O2 Del Method 07/21/25 10:48 36.7 C 73 18 116/42 L 94 Room Air 07/21/25 07:14 36.5 C 70 17 138/52 L 94 Nasal Cannula 07/21/25 07:00 59 L 07/21/25 02:45 36.6 C 68 18 112/61 93 Nasal Cannula O2 Flow Rate 07/21/25 10:48 07/21/25 07:14 2 07/21/25 07:00 07/21/25 02:45 2 Laboratory Results CBC, BMP, urine cx reviewed PG Care Time/CCT Total # of Minutes Spent Total Time Spent with Patient: Total time spent is greater than 50% in coordination of care (as documented) at patient's floor/unit and/or counseling patient: Coding Level of Care Code 38248 SUB INP/OBS CARE 2/35MIN Diagnoses CHF exacerbation I50.9 Pleural effusion, bilateral J90 Cystitis N30.90 Ambulatory dysfunction R26.2
[2025-07-21 13:39] VITALS: RESP 16; TEMP 98.4
[2025-07-22] MEDS: ACETAMINOPHEN 325 MG TAB PO PRN (03:13)
[2025-07-22 09:25] VITALS: PULSE 69; O2SAT 95
[2025-07-22] MEDS: FUROSEMIDE 20 MG TAB PO SCH (09:29)
--- NOTE | 2025-07-22 12:40 | Discharge Summary ---
Discharge Summary Date of Service July 22, 2025 Principal Dx & Hospital Course #1 = Principal Diagnosis (1) CHF exacerbation: (2) Pleural effusion, bilateral: (3) Cystitis: (4) Ambulatory dysfunction: Plan Patient is an 84-year-old female with a past medical history of GERD, CAD, dementia, chronic hyponatremia (baseline 130 and follows with nephrology), HTN, subarachnoid hemorrhage, type II DM, rheumatic heart disease. Patient presented via EMS from [facility] as they were concerned about a 10 pound weight gain over the past month. Workup in the ED revealed bilateral pleural effusions, anasarca, patient hypoxic on 2L NC. She is being admitted for further CHF workup. Patient also found to have a UTI. #Comfort measures only status-given CHF, dementia, pt's children desire pt to go on hospice which is quite appropriate. No pain or respiratory distress, no symptoms to be managed acutely at this time -Dc IV meds, lab draws -downgrade off tele -atropine prn secretions -allergic to morphine and none needed at this time-allergy is N/V and lethargy/confusion--> may need alternative opioid if has respiratory distress in future -Manager Call Center making referral to [facility] and will coordinate with [facility] hospice confirmed, personal-halfway/[place] updated. Plan for discharge under hospice care #Acute on Chronic HFpEF/bilateral pleural effusion/Hypoxia/Acute on chronic HFpEF/Pulm HTN/Mitral regurg - No confirmed history of CHF however on Lasix 10 mg twice daily, most recent echo 2019 revealed EF 60 to 64%. Chest CT revealed mild left and mild to moderate right layering pleural effusions. BNP 1002. ECHO here with EF 55-60%, mod-severe MR, mild MS, mid AI, mild-mod Pulm HTN - patient weaned off O2, now on room air, weight down, no respiratory distress after IV lasix -give one more dose IV lasix and then transition to lasix 20mg po qAM for comfort - heart healthy low sodium diet - oxygen as needed for O2 <90% -no further labs on RETAIL SUPPORT SPECIALIST\ - continue with Lasix 20 mg once per day for comfort, may hold if she appears dehydrated at any point #HLDcontinue baby aspirin, but dc statin and Zetia on RETAIL SUPPORT SPECIALIST #HTNdiscontinue lisinopril on RETAIL SUPPORT SPECIALIST #UTIreportedly treated with Macrobid 07/01 to 07/07. UA concerning for infection with 3+ LE, and > 50 WBC. Nonseptic presentationno leukocytosis, VSS. AP CT revealed cystitis. Ur cx with Aerococcus urinae Given penicillin and cephalosporin allergy treated with Cipro 400mg IV BID x 2 days-give John 500mg po x 1 and then course completed 07/21 #ambulatory dysfunction/fallreported fall 07/09. Uses wheelchair at baseline however able to independently transfer. - AP CT with no acute abnormalities however noted chronic degenerative changes of right hip which is a subtle pathologic fracture not excluded on RETAIL SUPPORT SPECIALIST-pain meds as needed for OA #Hyponatremiafollows with nephrology (low NA intake versus SIADH), baseline NA 130. Secondary now to CHF. Nephrology notes state pt on NaCl tabs but not on home med list Sodium 125 on admission--> uptrended to 130 with diuresis, remains stable at 127 -no further lab draws on RETAIL SUPPORT SPECIALIST -stop NaCl tabs at home #dementia/depression at baseline. continue escitalopram. #GERDcontinue PPI #Acute on chronic anemia - Consistently microcytic, iron studies obtained with low serum iron 18 and low ferritin - Check FOBT to r/o GI blood loss - Hgb 8.4 on 07/20, HD stable - Dose of Venofer 300mg IV x1 given Admission HPI Per Admitting Provider Patient is an 84-year-old female with a past medical history of GERD, CAD, dementia, chronic hyponatremia (baseline 130 and follows with nephrology), HTN, subarachnoid hemorrhage, type II DM, rheumatic heart disease. Patient presented via EMS from [facility] as they were concerned about a 10 pound weight gain over the past month. Workup in the ED revealed bilateral pleural effusions, anasarca, patient hypoxic on 2L NC. She is being admitted for further CHF workup. Patient also found to have a UTI. Patient seen at bedside with her daughter and son-in-law present. Patient is completely disoriented which is her baseline however pleasant. She denies any chest pain, shortness of breath, abdominal pain, nausea, vomiting. She feels well and is just hungry. Following history was obtained by the patient's ольга hamilton She stated they were visiting her today and there was no mention of the weight gain however staff called EMS this evening as they stated she is gaining 10 pounds since 07/05. Patient does endorse bilateral lower extremity edema. They stated she was also treated for UTI from 07/01 to 07/07 however there was concern about her taking these medications consistently. they stated that she had a fall on 07/09 in which the patient slid out of her wheelchair. She is unable to ambulate at baseline however is able to do transfers on her own from her wheelchair. Patient denies any pain. They wish to maintain her DNR/DNI status. Discussed treating edema and pleural effusions with IV diuretics however if fails to improve, may need to consider thoracentesis which they would consider if recommended. Discharge Exam Constitutional: WD/WN, vitals as above Respiratory: normal respiratory effort; no cough Auscultation: + diminished lung sounds (at bases) Cardiovascular: Rate/Rhythm: regular rate and regular rhythm Heart Sounds: + murmur (3/6 sys murmur at LSB) Gastrointestinal (Abdomen): normal bowel sounds, soft, nontender, no hepatosplenomegaly Psychiatric: Orientation: alert, oriented to person and cooperative; + not oriented to place and + not oriented to time Discharge Plan Discharge Items Patient Disposition: Hospice - Medical Facility Reason For Visit: HYPOXIA, CHF WORKUP, UTI Discharge Diagnosis: Hypoxia CHF UTI Acute on chronic iron deficiency anemia Dementia Condition on Discharge: Fair Activity: Resume your previous activity Bathing: No limitations Exercise/Sports: As tolerated Non-emergency contact: Primary Care Provider Call non-emergency contact if: you have any medication questions and your symptoms worsen Follow-up/Referrals: Lorene Murray MD [Primary Care Provider] - (No need to follow with PCP while on hospice) Diet: Low Sodium (2gm) Addtl Attending Provider Instructions: You were admitted and treated for congestive heart failure and will be discharged back to your personal-halfway on hospice to focus on quality of life and comfort measures. Some of your medications were discontinued to reduce the amount of pills you have to take each day. You will be continued on a low- dose of a water pill to keep the fluid out of your lungs. Pending Studies at Discharge: No Stand-Alone Forms: [facility] Skilled Items Patient informed of condition?: Yes DNR: Yes Discharge Level of Care: Other Communicable Disease: No Discharge Prognosis: Stable Lines: None Urinary Catheter: No Medications and DC Order Prescriptions: Continued omeprazole 20 mg capsule,delayed release(DR/EC) 20 mg PO DAILY Qty: 90 3RF escitalopram oxalate [Lexapro] 10 mg tablet 10 mg PO DAILY Qty: 90 3RF celecoxib [Celebrex] 200 mg capsule 200 mg PO DAILY Qty: 90 3RF acetaminophen 325 mg tablet 325 mg PO AMHS Qty: 60 1RF (DME) Manual Wheelchair Device See Rx Instructions .Route Qty: 1 0RF Rx Instructions: WITH LOCK EXTENTIONS aspirin 81 mg tablet,delayed release (DR/EC) 81 mg PO DAILY Changed furosemide [Lasix] 20 mg tablet 20 mg PO QAM Qty: 20 3RF Rx Instructions: TAKES 0800 & 1400 Discontinued ezetimibe [Zetia] 10 mg tablet 10 mg PO DAILY Qty: 90 3RF atorvastatin 80 mg tablet 80 mg PO DAILY Qty: 90 3RF lisinopril 10 mg tablet 10 mg PO DAILY Qty: 90 3RF coenzyme Q10 100 mg capsule 100 mg PO DAILY Qty: 90 3RF Discharge Orders: Discharge Order (Routine); Ordered 07/22/25 Ordered By: Tonny Carrero/Other Patient Handouts: Heart Failure Make Changes Diet Admission Data Admit Date/Time: 07/19/25 00:15 Attending Provider: Tonny Hendrickson Admit Provider: Celeste Calzada Primary Care Provider: Lorene Murray Other Providers: [facility],Home Healthcare; Celeste Calzada Hospital Stay Data Consultations 07/19/25 00:04 ED Decision to Admit Stat Diagnostic Imagining Performed 07/18/25 20:11 CT Abd and Pelvis [CT abd pelvis IV con only] Stat CT chest diagnostic w con Stat Pending Results Patient Have Any Pending Studies at Discharge: No Discharge Instructions Given to Patient (Per Discharging Provider) You were admitted and treated for congestive heart failure and will be discharged back to your personal-halfway on hospice to focus on quality of life and comfort measures. Some of your medications were discontinued to reduce the amount of pills you have to take each day. You will be continued on a low- dose of a water pill to keep the fluid out of your lungs. Total Time Total Time Spent Total Time Spent (In Minutes): 45 minutes spent at the bedside discussing results and modifications to care plan with patient. Arrangements for prescription on discharge. Reviewing new medications, discharge planning and follow-up coordination Coding Level of Care Code 80641 INP/OBS DISCH >30 MIN Diagnoses CHF exacerbation I50.9 Pleural effusion, bilateral J90 Cystitis N30.90 Ambulatory dysfunction R26.2
[2025-07-22 13:22] VITALS: BP 105/48
== END 2025-07-22 13:43 | disposition hospice, home (50) | DRG 291 ==
LOC: ED 17:42 → EDINP 07-19 00:15 → SUATTDRO 07-19 00:15 → 2E 07-19 04:17 → 3E 07-21 13:33